=== PATIENT | female | born 1930 | race Caucasian/White ===

== ENCOUNTER → 2017-12-26 | Outpatient (CLI) | payer MEDICARE ==
[~2017-12-26] MED LIST: ASPIR 8181 MG PO; AZO CRANBERRY1 EAC1 PO; EXFORGE 10-3201 EACH PO; NAMENDA10 MG PO; XANAX1 MG PO
--- NOTE | 2017-12-26 13:42 | Diagnostic Imaging Report ---
PROCEDURE: X-RAY CHEST, TWO VIEWS COMPARISON: None. INDICATIONS: COUGH, PNEUMONIA FINDINGS: The lungs are well-inflated. No focal airspace consolidation, pleural effusion, or pneumothorax. Tortuosity and atherosclerotic calcification of the thoracic aorta. Normal heart size. No pulmonary edema. No acute osseous abnormalities. Surgical clips project over the upper abdomen on the lateral radiograph and likely reflect prior cholecystectomy. CONCLUSION: No acute cardiopulmonary abnormality. No consolidative pneumonia. Dictated by: Luis Alfredo Verma M.D. on 12/26/2017 at 13:51 Electronically approved by: Luis Alfredo Verma M.D. on 12/26/2017 at 13:51
--- NOTE | 2017-12-26 13:46 | Diagnostic Imaging Report ---
PROCEDURE:L-SPINE COMPLETE COMPARISON:None. INDICATIONS:LOWER BACK PAIN FOR A FEW DAYS FINDINGS: There are 5 [id number] lumbar-type vertebral bodies. The bones are diffusely osteopenic. There is an age-indeterminate mild anterior compression deformity of T12 with less than 20% loss of anterior height. No acute, displaced fracture or subluxation. No pars interarticularis defects are identified on the oblique radiographs. There is mild bilateral facet arthropathy at L5-S1. Intervertebral disc spaces are otherwise well maintained for a patient of this age. Surgical clips project over the right upper quadrant of the abdomen and the pelvis. Atherosclerotic vascular calcifications. Sequelae joints are maintained. Sacral foramina appear intact superiorly. Inferiorly, the sacrum is obscured by rectal gas and stool. CONCLUSION: Diffuse osteopenia with a mild age-indeterminate anterior compression deformity of T12. Point tenderness over this region of the spine would suggest relative acuity. Mild bilateral facet arthropathy at L5-S1. Dictated by: Luis Alfredo Verma M.D. on 12/26/2017 at 13:55 Electronically approved by: Luis Alfredo Verma M.D. on 12/26/2017 at 13:55
== END ==
LOC: RAD 12:09
DX: R05 Cough (principal); M54.5 Low back pain
CPT/HCPCS: 71046; 72110

== ENCOUNTER 2020-07-24 14:47 | Inpatient (IN) | payer MEDICARE, OTHER ==
[~2020-07-24] VITALS: Ht 157.5 cm; Wt 61.2 kg
--- NOTE | 2020-07-24 15:12 | Emergency Department Note ---
History of Present Illnes History of Present Illness Chief Complaint: General Medicine Complaints History of Present Illness This is a 89 year old female arrived to the ED with complaints of right shoulder pain after a fall. Chief Complaint Comment [facility]. PATIENT GOT OUT AND FELL, INJURING RIGHT SHOULDER. PATIENT RATES PAIN 10/10, ICE PACK ON RIGHT ARM UPON ARRIVAL. PATIENT APPEARS IN NO DISTRESS, RESP EVEN AND NONLABORED Historian: Patient Arrival Mode: Car Severity: mild Context: Reports trauma/injury Past Medical/Family History Physician Review I have reviewed the patient's past medical and family history. Any updates have been documented here. Past Medical History Recent Fever: No Clinical Suspicion of Infectio: No New/Unexplained Change in Ment: No Past Medical History: Hypertension, CAD, Other Mental Illness Other Medical History: ALZHEIMER'S OVERACTIVE BLADDER Social History Physically hurt or threatened: No Other Last Tetanus: UNK Physical Exam Related Data Allergies: Coded Allergies: Nitrofurantoin Macrocrystal (Verified Allergy, Unknown, 07/24/20) Penicillins (Verified Allergy, Unknown, 07/24/20) Sulfa (Sulfonamide Antibiotics) (Verified Allergy, Unknown, 07/24/20) nitrofurantoin (Verified Allergy, Unknown, 07/24/20) Triage Vital Signs Vital Signs Date Time Temp Pulse Resp B/P (MAP) Pulse Ox O2 Delivery O2 Flow Rate FiO2 07/24/20 14:47 97.6 52 18 145/110 96 Room Air Vital signs reviewed: Yes Physical Exam CONSTITUTIONAL Constitutional: Present well-developed HENT HENT: Present normocephalic, Present atraumatic, Present oropharynx clear/moist, Present nose normal HENT L/R: Present left ext ear normal, Present right ext ear normal EYES Eyes: Reports PERRL, Reports conjunctivae normal NECK Neck: Present ROM normal PULMONARY Pulmonary: Present effort normal, Present breath sounds normal CARDIOVASCULAR Cardiovascular: Present regular rhythm, Present heart sounds normal, Present capillary refill normal, Present normal rate GASTROINTESTINAL Abdominal: Present soft, Present nontender, Present bowel sounds normal GENITOURINARY Genitourinary: Present exam deferred SKIN Skin: Present warm, Present dry MUSCULOSKELETAL Musculoskeletal: Present ROM normal NEUROLOGICAL Neurological: Present alert, Present no gross motor or sensory deficits PSYCHOLOGICAL Psychological: Present mood/affect normal, Present judgement normal Results Laboratory Lab results reviewed: Yes Imaging Imaging results reviewed: Yes Impressions IMPRESSION: 1. Comminuted and impacted fracture of the proximal humerus, likely at the head/neck junction. 2. Comminuted fracture of the humeral shaft. 3. Cardiomegaly with low lung volumes with bronchovascular crowding. Signed by: Nereida Newman MD on 07/24/2020 4:12 PM Assessment & Plan Medical Decision Making MDM 89 yo F arrived to the ED after a mechanical fall, obvious deformity noted right shoulder. Patient admitted for operative repair/orthopedic consult. Assessment & Plan Final Impression: (1) Humeral head fracture (2) Humeral shaft fracture Depart Disposition: ADMITTED Last Vital Signs Date Time Temp Pulse Resp B/P (MAP) Pulse Ox O2 Delivery O2 Flow Rate FiO2 07/24/20 14:47 97.6 52 18 145/110 96 Room Air Home Meds Reported Medications Acetaminophen (ACETAMINOPHEN) 325 Mg Tablet, 325 MG PO Q6H PRN for PAIN, TAB 07/28/20 Tramadol Hcl (ULTRAM) 50 Mg Tablet, 37.5 MG PO Q6H PRN for PAIN, TAB 07/28/20 Lansoprazole (LANSOPRAZOLE) 30 Mg Capsule.dr 07/24/20 Sertraline Hcl (SERTRALINE HCL) 25 Mg Tablet 07/24/20 Atorvastatin Calcium (ATORVASTATIN CALCIUM) 10 Mg Tablet 07/24/20 Sucralfate (SUCRALFATE) 1 Gm Tablet, BID 07/24/20 Clopidogrel Bisulfate (CLOPIDOGREL) 75 Mg Tablet 07/24/20 Alprazolam (ALPRAZOLAM) 0.5 Mg Tablet, HS 07/24/20 Risperidone (RISPERIDONE) 0.25 Mg Tablet 07/24/20 [Zolpidem] No Conflict Check, HS 07/24/20 Metoprolol Tartrate (LOPRESSOR) 25 Mg Tab, BID 07/24/20 Losartan Potassium (LOSARTAN POTASSIUM) 50 Mg Tablet 07/24/20 Memantine HCl (Memantine HCl) 10 Mg Tablet, BID 07/24/20 HOWARD SALAMANCA DO Jul 24, 2020 15:12
[2020-07-24] MEDS ORDERED: HYDROCODONE/APAP 10MG-325MG TAB PO ONE (15:15)
[2020-07-24] MEDS ORDERED: ONDANSETRON HCL INJ 2MG/ML 2ML 2 MG/ML VIAL IV ONE (15:26)
[2020-07-24] MEDS ORDERED: MORPHINE SULFATE 5 MG/ML VIAL IV ONE (15:30)
[2020-07-24] MEDS ORDERED: MORPHINE SULFATE 2 MG/ML SYR 1ML IV ONE (15:30)
--- NOTE | 2020-07-24 15:30 | NUR ---
as per Dr. Andrews, patient will not have any labs done, cath lab radiological technologist ordered to discard blood
--- NOTE | 2020-07-24 16:00 | NUR ---
PT NOTED TO HAVE O2 SATS OF 89-92% ON RA. PER DAUGHTER PT HAS NEVER REQUIRED SUPPLEMENTAL O2. PT HAD JUST RECEIVED 2MG MORPHINE. PT INSTRUCTED TO TAKE DEEP BREATHS. PT PLACED ON 2L 02 VIA NC. AWARE. O2 SATS NOW 97%. PT INTERMITTENTLY DROWSY. WILL CONTINUE TO MONITOR.
--- NOTE | 2020-07-24 16:16 | Diagnostic Imaging Report ---
X-ray right shoulder 2 views. HISTORY: Shoulder Pain. COMPARISON: None available. FINDINGS: Bones/joints: There is comminuted and impacted fracture of the proximal humerus, likely at the head/neck junction. No evidence of dislocation identified. Additionally, there is comminuted fracture of the humeral shaft. Soft tissues: There is diffuse soft tissue swelling around fracture. Others: The imaged lungs demonstrate low lung volume with bronchovascular crowding and cardiomegaly. There is atherosclerotic calcification of the thoracic aortic arch. There is also bibasilar atelectasis. IMPRESSION: 1. Comminuted and impacted fracture of the proximal humerus, likely at the head/neck junction. 2. Comminuted fracture of the humeral shaft. 3. Cardiomegaly with low lung volumes with bronchovascular crowding. Signed by: Nereida Newman MD on 07/24/2020 4:12 PM
--- OUTSIDE RECORDS SUMMARY | 2020-07-24 16:16 | XMS REPORT | Continuity of Care Document ---
Author Author [facility] TONY Pagan [employer] Address Unknown Phone Unavailable Care Team Providers Care Neurological Physiotherapist Name Role Phone [employer] Unavailable Un available Problems Problem Status Onset Date Classification Date Reported Comments Source VOMITING Active 03/06/2019 [facility] NON-ST ELEVATION FL(NSTEMI),ACUTE HYPOKA Active 03/06/2019 [facility] Other forms of dyspnea 12/30/2018 07/14/2019 [facility] DX: R06.09 Active 12/22/2018 [facility] Noninfective gastroenteritis and colitis, unspecified 02/11/2018 05/14/2018 [facility] ACUTE DIARRHEA, GENERALIZED WEAKNESS Active 02/01/2018 [facility] DIAREHA Active 02/01/2018 [facility] Dementia (disorder) Resolved Problem [id number], systemic arterial (disorder) Resolved Problem 07/14/2019 [facility] Ulcer of intestine 05/14/2018 [facility] Anemia, unspecified 05/14/2018 [facility] Unspecified dementia without behavioral disturbance 05/14/2018 [facility] Hyperlipidemia, unspecified 05/14/2018 [facility] Anxiety disorder, unspecified 05/14/2018 [facility] Essential (primary) hypertension 05/14/2018 [facility] Weakness 05/14/2018 [facility] Hypokalemia 05/14/2018 [facility] Other hemorrhoids 05/14/2018 [facility] Elevated white blood cell count, unspecified 05/14/2018 [facility] Gastritis, unspecified, without bleeding 05/14/2018 [facility] Esophagitis, unspecified 05/14/2018 [facility] DIARRHEA, UNSPECIFIED Active [facility] WEAKNESS Active [facility] OTHER FORMS OF DYSPNEA Active [facility] NON-ST ELEVATION (NSTEMI) MYOCARDIAL INF Active [facility] HYPOKALEMIA Active [facility] HYPO-OSMOLALITY AND HYPONATREMIA Active [facility] Medications Medication Details Route Status Patient Instructions Ordering Provider Order Date Source clopidogrel 75 mg oral tablet 75 mg = 1 tab, PO, Daily, # 30 tab, 1 Refill(s), Pharmacy: [facility] [id number] Active 03/09/2019 [facility] losartan 25 mg oral tablet 25 mg = 1 tab, PO, Daily, # 30 tab, 0 Refill(s), Pharmacy: [facility] [id number] Active 03/09/2019 [facility] metoprolol tartrate 25 mg oral tablet 25 mg = 1 tab, PO, Q12H, # 60 tab, 0 Refill(s), Pharmacy: [facility] [id number] Active 03/09/2019 [facility] Plavix Notes: (Same As: Plavix) Inactive 03/09/2019 [facility] Plavix 300 mg, Route: PO, Drug form: TAB, ONCE, Dosing Weight 71.477, kg, Start date: 03/08/19 10:06:00 CDT, Stop date: 03/08/19 10:06:00 CDT Inactive 03/08/2019 [facility] Plavix Notes: ( Same as: Plavi x) Inactive 03/08/2019 [facility] potassium chloride 20 mEq oral tablet, extended releas e Notes: (Same as: K-Dur 20) "Do Not Crush" Give with food and full glass of water For patients unable to swallow tablet, dissolve in one half glass of water. Allow about 2 minutes for the tablets to disintegrate. Stir before giving to prepare slurry and administer. Please exclude Patients with feeding tube less than 14 [place] (Dobhoff, J-tube etc) and pediatric and patients. Inactive 03/07/2019 [facility] metoprolol tartrate Notes: (Sa me as: Lopressor) No Longer Active 03/07/2019 [facility] potassium chloride 20 mEq oral tablet, extended releas e Notes: (Same as: K-Dur 20) "Do Not Crush" Give with food and full glass of water For patients unable to swallow tablet, dissolve in one half glass of water. Allow about 2 minutes for the tablets to disintegrate. Stir before giving to prepare slurry and administer. Please exclude Patients with feeding tube less than 14 [place] (Dobhoff, J-tube etc) and pediatric and patients. Inactive 03/07/2019 [facility] Risperidone Notes: (Same as: R isperdal) No Longer Active 03/07/2019 [facility] Memantine Notes: (Same As: Nam enda) No Longer Active 03/07/2019 [facility] Protonix Notes: Tablet should not be chewed or crushed. (Same as: Protonix) No Longer Active 03/07/2019 [facility] Aspirin 81 MG Enteric Coated Tablet Notes: Do not crush or chew. (Same As: Ecotrin) No Longer Active 03/07/2019 [facility] Alprazolam 0.5 MG Oral Tablet [Xanax] Notes: With food or milk (Same as: Xanax) No Longer Active 03/07/2019 [facility] atorvastatin Notes: (Same As: Lipitor) No Longer Active 03/07/2019 [facility] NS 1000 mL 1,000 mL, Rate: 75 ml/hr, Infuse over: 13.3 hr, Route: IV, Dosing Weight 72.727 kg, Total Volume: 1,000, Start date: 03/06/19 18:59:00 CDT, Duration: 30 day, Stop date: 04/05/19 18:58:00 CDT, 1.82, m2 Inactive 03/06/2019 [facility] Seroquel Notes: (Same as: SERO quel) No Longer Active 03/06/2019 [facility] Hydralazine Notes: (Same as: A presoline) Push over 5 minutes No Longer Active 03/06/2019 [facility] Acetaminophen 325 MG / Hydrocodone Amanda trate 5 MG Oral Tablet [Yachats 5/325] Notes: (Same as: Y[place]ats 325/5) Do not ex ceed 4gm/day of acetaminophen. No Longer Activ e 03/06/2019 [facility] Nicotine Notes: (Same as: Jayesh mcdonough) "Remove old patch before application of new patch" WASTE: F/P - P Waste Black; E - P Waste Black No Longer Active 03/06/2019 [facility] Simethicone Notes: (Same as: Lisa ylicon) No Longer Active 03/06/2019 [facility] Maalox Advanced Regular Strength SUSP Notes: (aluminum hydroxide-magnesium hyd-simethicone [phone]/5ml 30 ml ud YOMI) No Longer Active 03/06/2019 [facility] Morphine Notes: (Same as:MORPh ine Sulfate) No Longer Active 03/06/2019 [facility] Robitussin-AC oral syrup Notes : (Same As: Robitussin AC) No Longer Active 03/06/2019 [facility] James Stratton Notes: (Same A s: Armondon Chayito) "Do Not Crush" No Longer Active 03/06/2019 [facility] Mucinex Notes: (Same as: Guaif enesin LA, Humibid LA, Mucinex) "Do Not Crush" Take medication with plenty of water. No Longer Active 03/06/2019 [facility] Dextrose 50% Syringe 25 gm, 50 mL, Route: IVP, Drug Form: INJ, Dosing Weight 72.727, kg, PRN, PRN Blood Glucose Results, Start date: 03/06/19 18:21:00 CDT, Duration: 30 day, Stop date: 04/05/19 18:20:00 CDT No Longer Active 03/06/2019 [facility] Docusate Notes: (Same as: Cola ce) (Do Not Crush) No Longer Active 03/06/2019 [facility] Glucagon 1 mg, Route: IM, Drug form: PDR/INJ, PRN, Dosing Weight 72.727, kg, PRN Blood Glucose Results, Start date: 03/06/19 18:21:00 CDT, Duration: 30 day, Stop date: 04/05/19 18:20:00 CDT No Longer Active 03/06/2019 [facility] Bisacodyl Notes: (Same As: Dul colax, Bisco-Lax) No Longer Active 03/06/2019 [facility] POLYETHYLENE GLYCOL 3350 Notes : Dissolve in 8 oz of water or juice. (Same as: Miralax) No Longer Active 03/06/2019 [facility] Ondansetron Notes: (Same as: Douglas lewis) MEDICATION WASTE Product Size: 4 mg Product Wasted: ___ mg No Longer Active 03/06/2019 [facility] Acetaminophen Notes: Do not ex ceed 4 gm/day. (Same as: Tylenol) No Longer Active 03/06/2019 [facility] Trazodone Notes: (Same As: Lj yrel) No Longer Active 03/06/2019 [facility] Melatonin Notes: (Same as: Steffanie atonin) No Longer Active 03/06/2019 [facility] Diphenhydramine 25 mg, 1 tab, Route: PO, Drug form: TAB, Q6H, Dosing Weight 72.727, kg, PRN as needed for allergy symptoms, Start date: 03/06/19 18:21:00 CDT, Duration: 30 day, Stop date: 04/05/19 18:20:00 CDT No Longer Active 03/06/2019 [facility] Aspirin 81 MG Chewable Tablet 81 mg, Route: PO, Drug form: CHEWTAB, ONCE, Dosing Weight 72.727, kg, Priority: Routine, Start date: 03/06/19 17:17:00 CDT, Stop date: 03/06/19 17:17:00 CDT Inactive 03/06/2019 [facility] normal saline 0.9% IV 1,000 mL 1,000 mL, Rate: 50 ml/hr, Infuse over: 20 hr, Route: IV, Dosing Weight 71.477 kg, Total Volume: 1,000, Priority: STAT, Start date: 03/06/19 17:17:00 CDT, Duration: 5 day, Stop date: 03/11/19 17:17:00 CDT, 1.8, m2 No Longer Active 03/06/2019 [facility] Hydrochlorothiazide 25 MG / valsartan 16 0 MG Oral Tablet 1 tab, PO, Daily, 0 Refill(s) Active 03/06/2019 [facility] lansoprazole 30 mg oral delayed release capsule 30 mg = 1 cap, PO, BID, 0 Refill(s) Active 03/06/2019 [facility] Potassium Chloride Notes: Infu se at a rate of 10 mEq/hr. (Same as: KCL) Inactive 03/06/2019 [facility] Heparin - one time bolus for ACS 3,600 unit, 3.6 mL, Route: IVP, Drug form: INJ, ONCE, Dosing Weight 72.727, kg, Priority: STAT, Start date: 03/06/19 16:23:00 CDT, Stop date: 03/06/19 16:23:00 CDT Inactive 03/06/2019 [facility] Heparin 60 unit/kg Bolus (Heparin Dosing Weight) Route: IVP, PRN, 3,600 unit, 3.6 mL, Drug form: INJ, PRN, Heparin Protocol, Start date: 03/06/19 16:23:00 CDT Stop date: 04/05/19 16:22:00 CDT, 30 day No Longer Active 03/06/2019 [facility] Heparin 30 unit/kg Bolus (Heparin Dosing Weight) Route: IVP, PRN, 1,800 unit, 1.8 mL, Drug form: INJ, PRN, Heparin Protocol, Start date: 03/06/19 16:23:00 CDT Stop date: 04/05/19 16:22:00 CDT, 30 day No Longer Active 03/06/2019 [facility] heparin additive 25,000 unit [12 unit/kg /hr] + Premix Diluent Dextrose 5% 500 mL 500 mL, Rate: 14.53 ml/hr, Infuse over: 34.4 hr, Route: IV, Dosing Weight 60.53 kg, Total Volume: 500 mL, Start date: 03/06/19 16:23:00 CDT, Duration: 30 day, Stop date: 04/05/19 16:22:00 CDT, 1.66, m2 No Longer Active 03/06/2019 [facility] Aspirin Notes: Take with food. Inactive 03/06/2019 [facility] Saline Flush 0.9% Notes: (Same as: BD Posiflush) No Longer Active 03/06/2019 [facility] potassium chloride 10 mEq oral capsule, extended release 10 mEq = 1 cap, PO, BID, # 14 cap, 0 Refill(s) Active 02/05/2018 [facility] Docusate Sodium 100 MG Oral Capsule [Colace] 100 mg = 1 cap, PO, BID, PRN as needed for constipation, # 28 cap, 0 Refill(s) Active 02/05/2018 [facility] Lactulose 667 MG/ML Oral Solution 10 gm = 15 mL, PO, BID, PRN as needed for constipation, X 7 day, # 300 mL, 0 Refill(s) No Longer Active 02/05/2018 [facility] Potassium Chloride 1.33 MEQ/ML Oral Solution Notes: (Same as: Potassium Chloride) Inactive 02/05/2018 [facility] Potassium Chloride Notes: MUST be Diluted before use (Same as: KCl) MEDICATION WASTE Product Size: 40 mEq Product Wasted: ___ mEq Inactive 02/04/2018 [facility] Potassium Chloride Notes: (Stef e as: K-Dur 20) "Do Not Crush" With food and full glass of water Inactive 02/04/2018 [facility] pantoprazole Notes: Tablet baltazar uld not be chewed or crushed. (Same as: Protonix) N o Longer Active 02/04/2018 [facility] Sodium Chloride 0.9% IV 1,000 mL 1,000 mL, Rate: 25 ml/hr, Infuse over: 40 hr, Route: IV, Dosing Weight 60 kg, Total Volume: 1,000, Start date: 02/03/18 13:07:00 CDT, Duration: 1 day, Stop date: 02/04/18 13:06:00 CDT, 1.62, m2 Inactive 02/03/2018 [facility] sodium phosphate 15 mmol, 5 mL , Route: IVPB, PRN, Dosing Weight 60, kg, PRN Abnormal Lab Result, For NON-ICU Patients Only., Start date: 02/03/18 11:56:00 CDT, Duration: 30 day, Stop date: 03/05/18 11:55:00 CDT No Longer Active 02/03/2018 [facility] potassium phosphate Notes: (Sa me as: K Phosphate.) 1 mMol phoshate has 1.47 mEq potassium Infuse over 4 hours No Longer Active 02/03/2018 [facility] Magnesium Oxide Notes: (Same a s: Mag-Ox 400) Magnesium oxide [id number] elemental magnesium Dose=____mg magnesium oxide (___mg elemental magnesium) No Longer Active 02/03/2018 [facility] Magnesium Sulfate Notes: WASTE : F/P - Sink; E - Municipal Trash Bin No Longer Active 02/03/2018 [facility] Calcium Gluconate Notes: WASTE : F/P - Sink; E - Municipal Trash Bin No Longer Active 02/03/2018 [facility] Potassium Chloride Notes: MUST be Diluted before use (Same as: KCl) MEDICATION WASTE Product Size: 40 mEq Product Wasted: ___ mEq No Longer Active 02/03/2018 [facility] potassium phosphate-sodium phosphate 250 mg-280 mg-160 mg oral powder for reconstitution Notes: (Same as: Phos-NaK) Each 1.5 gm pkt has 250mg phosphorous. Mix w/2.5oz water and stir. No Longer Active 02/03/2018 [facility] Potassium Chloride Notes: MUST be Diluted before use (Same as: KCl) MEDICATION WASTE Product Size: 40 mEq Product Wasted: ___ mEq Inactive 02/03/2018 [facility] Risperidone Notes: (Same as: R isperdal) No Longer Active 02/03/2018 [facility] valsartan Notes: Same as Diovan No Longer Active 02/03/2018 [facility] amLODIPine Notes: (Same as: No rvasc) No Longer Active 02/03/2018 [facility] Amlodipine 5 MG / valsartan 160 MG Oral Tablet [Exforge 5/160] 1 tab, Route: PO, Drug Form: TAB, Dosing Weight 60, kg, Daily, Start date: 02/03/18 9:00:00 CDT, Duration: 30 day, Stop date: 03/04/18 9:00:00 CDT No Longer Active 02/03/2018 [facility] Potassium Chloride Notes: (Stef e as: K-Dur 20) "Do Not Crush" With food and full glass of water Inactive 02/03/2018 [facility] magnesium citrate 58.2 MG/ML Oral Solution Notes: (Same as: Citrate of Magnesia) Concentration: 1.745 gm / 30 mL Inactive 02/03/2018 [facility] Sertraline Notes: (Same as: Z oloft) No Longer Active 02/03/2018 [facility] Memantine Notes: (Same As: Nam enda) No Longer Active 02/03/2018 [facility] atorvastatin Notes: (Same As: Lipitor) No Longer Active 02/03/2018 [facility] Alprazolam 0.5 MG Oral Tablet Notes: With food or milk (Same as: Xanax) No Longer Active 02/02/2018 [facility] Ibuprofen Notes: (Same as: Adv il) Give with food. No Longer Active 02/02/2018 [facility] Golytely Notes: (polyethylene glycol electrolyte solution 4 Liter bottle) (Same as: Golytely, Colyte) Inactive 02/02/2018 [facility] Potassium Chloride Notes: MUST be Diluted before use (Same as: KCl) MEDICATION WASTE Product Size: 40 mEq Product Wasted: ___ mEq Inactive 02/02/2018 [facility] potassium chloride 20 mEq oral tablet, extended releas e Notes: (Same as: K-Dur 20) "Do Not Crush" With food and full glass of water Inactive 02/02/2018 [facility] hydrocortisone acetate 25 MG/ML / Pramox ine hydrochloride 10 MG/ML Topical Lotion [Analpram HC] Notes: (Same as: ProctoCream-HC, Analpram-HC) No Longer Active 02/02/2018 [facility] Docusate Sodium 100 MG Oral Capsule [Colace] Notes: (Same as: Colace) (Do Not Crush) No Longer Active 02/02/2018 [facility] Lactulose 667 MG/ML Oral Solution Notes: (Same as:Chronulac) No Longer Active 02/02/2018 [facility] Flagyl Notes: (Same as: Flagyl ) Avoid alcohol. No Longer Active 02/02/2018 [facility] Seroquel Notes: (Same as: SERO quel) No Longer Active 02/02/2018 [facility] Dulcolax Laxative Notes: (Same As: Dulcolax, Bisco-Lax) Inactive 02/02/2018 [facility] magnesium citrate 58.2 MG/ML Oral Solution Notes: (Same as: Citrate of Magnesia) Concentration: 1.745 gm / 30 mL Inactive 02/02/2018 [facility] memantine 10 mg oral tablet 10 mg = 1 tab, PO, Q12H, 0 Refill(s) Active 02/02/2018 [facility] Hemorrhoidal 0.25% rectal suppository Daily, PRN Hemorrhoids, 0 Refill(s) Activ e 02/02/2018 [facility] hydrocortisone acetate 25 MG/ML / Pramox ine hydrochloride 10 MG/ML Topical Lotion [Analpram HC] 1 appl, UT, TID, PRN Pain Score 1- 5, # 1 kit, 0 Refill(s) Active 02/02/2018 [facility] Alprazolam 0.5 MG Oral Tablet 0.5 mg = 1 tab, PO, Q5PM, 0 Refill(s) Active 02/02/2018 [facility] atorvastatin 10 mg oral tablet 10 mg = 1 tab, PO, Bedtime, # 30 tab, 0 Refill(s) Active 02/02/2018 [facility] lansoprazole 30 mg oral delayed release capsule 30 mg = 1 cap, PO, BID, 0 Refill(s) No Longer Active 02/02/2018 [facility] lansoprazole 30 mg, PO, Daily, # 15 cap, 0 Refill(s) Active 02/02/2018 [facility] Acetaminophen 500 mg, PO, Q6H, PRN Pain Score 1-5, 0 Refill(s) Active 02/02/2018 [facility] zolpidem 10 mg oral tablet 10 mg = 1 tab, PO, Bedtime, PRN for sleep, # 14 tab, 0 Refill(s) Active 02/02/2018 [facility] sertraline 25 mg oral tablet 2 5 mg = 1 tab, PO, Bedtime, 0 Refill(s) Active 02/02/2018 [facility] risperiDONE 0.25 mg oral tablet 0.25 mg = 1 tab, PO, Daily, 0 Refill(s) Active 02/02/2018 [facility] Amlodipine 5 MG / valsartan 160 MG Oral Tablet [Exforge 5/160] 1 tab, PO, Daily, 0 Refill(s) Active 02/02/2018 [facility] Miralax 17 gm, PO, BID, 0 Refi ll(s) Active 02/02/2018 [facility] Ibuprofen 200 mg, PO, Daily, P RN Pain Score 6-10, 0 Refill(s) No Longer Active 02/02/2018 [facility] Cranberry preparation 250 MG Chewable Ta blet [Azo-Cranberry] 1 tab, PO, Daily, 0 Refill(s) Active 02/02/2018 [facility] Sodium Chloride 0.9% IV 1,000 mL 1,000 mL, Rate: 60 ml/hr, Infuse over: 16.7 hr, Route: IV, Dosing Weight 63.636 kg, Total Volume: 1,000, Start date: 02/01/18 17:00:00 CDT, Duration: 30 day, Stop date: 03/03/18 16:59:00 CDT, 1.68, m2 No Longer Active 02/01/2018 [facility] Saline Flush 0.9% Notes: (Same as: BD Posiflush) No Longer Active 02/01/2018 [facility] Ondansetron Notes: (Same as: Douglas lewis) MEDICATION WASTE Product Size: 4 mg Product Wasted: ___ mg No Longer Active 02/01/2018 [facility] Flagyl Notes: (Same as: [place] ) Avoid alcohol. Inactive 02/01/2018 [facility] Ciprofloxacin Notes: Do not re frigerate Inactive 02/01/2018 [facility] Morphine 4 mg, Route: IVP, ONC E, Dosing Weight 63.636, kg, Priority: STAT, Start date: 02/01/18 11:53:00 CDT, Stop date: 02/01/18 11:53:00 CDT Inactive 02/01/2018 [facility] Ondansetron 4 mg, Route: IVP, ONCE, Dosing Weight 63.636, kg, Priority: STAT, Start date: 02/01/18 11:53:00 CDT, Stop date: 02/01/18 11:53:00 CDT Inactive 02/01/2018 [facility] Saline Flush 0.9% Notes: (Same as: BD Posiflush) No Longer Active 02/01/2018 [facility] Sodium Chloride 0.9% (Bolus) IV 1,000 mL, Infuse Over: 1 hr, Route: IV, ONCE, Priority: STAT, Dosing Weight 63.636 kg, Start date: 02/01/18 11:53:00 CDT, Stop date: 02/01/18 11:53:00 CDT Inactive 02/01/2018 [facility] Allergies, Adverse Reactions, Alerts Substance Category Reaction Severity Reaction type Status Date Reported Comments Source zitromax Assertion Drug allergy Active [facility] macrobyt Assertion Drug allergy Active [facility] penicillins Assertion Drug allergy Active [facility] sulfa drugs Assertion Drug allergy Active [facility] ibuprofen Assertion Drug allergy Active [facility] iodine containing compounds As sertion Drug aller gy Active [facility] Immunizations No Data Provided for This Section Results Order Name Results Value Reference Range Date Interpretation Comments Source CHEM PANEL eGFR 64 03/08/2019 Result Comment: The eGFR is calculated using the CKD-EPI formula. In most young, healthy individuals the eGFR will be >90 mL/min/1.73m2. The eGFR declines with age. An eGFR of 60-89 may be normal in some populations, particularly the elderly, for whom the CKD-EPI formula has not been extensively validated. Use of the eGFR is not recommended in the following populations:

Individuals with unstable creatinine concentrations, including patients and those with serious co-morbid conditions.

Patients with extremes in muscle mass or diet.

The data above are obtained from the National Kidney Disease Education Program (NKDEP) which additionally recommends that when the eGFR is used in patients with extremes of body mass index for purposes of drug dosing, the eGFR should be multiplied by the estimated BMI. [facility] CHEM PANEL Chloride Lvl 108 95 - 109 03/08/2019 [facility] CHEM PANEL Sodium Lvl 137 135 - 145 03/08/2019 [facility] CHEM PANEL Potassium Lvl 4.3 3.5 - 5.1 03/08/2019 [facility] CHEM PANEL CO2 22 24 - 32 03/08/2019 [facility] CHEM PANEL AGAP 11.3 10.0 - 20.0 03/08/2019 [facility] CHEM PANEL Calcium Lvl 9.1 8.5 - 10.5 03/08/2019 [facility] CHEM PANEL Creatinine Lvl 0.83 0.50 - 1.40 03/08/2019 [facility] CHEM PANEL BUN 9 7 - 22 03/08/2019 [facility] CHEM PANEL Glucose Lvl 84 70 - 99 03/08/2019 [facility] HEMATOLOGY WBC 6.5 3.7 - 10.4 03/08/2019 [facility] HEMATOLOGY Platelet 219 133 - 450 03/08/2019 [facility] HEMATOLOGY RDW 13.5 11.5 - 14.5 03/08/2019 [facility] HEMATOLOGY MCHC 33.0 32.0 - 36.0 03/08/2019 [facility] HEMATOLOGY RBC 4.27 4.20 - 5.40 03/08/2019 [facility] Hgb 12.6 12.0 - 16.0 03/08/2019 [facility] MPV 8.3 7.4 - 10.4 03/08/2019 [facility] Hct 38.1 36.0 - 48.0 03/08/2019 [facility] MCH 29.5 27.0 - 31.0 03/08/2019 [facility] HEMATOLOGY MCV 89.4 80.0 - 98.0 03/08/2019 [facility] CHEM PANEL Magnesium Lvl 1.9 1.8 - 2.4 03/07/2019 [facility] CHEM PANEL Glucose Lvl 92 70 - 99 03/07/2019 [facility] CHEM PANEL Potassium Lvl 3.1 3.5 - 5.1 03/07/2019 [facility] CHEM PANEL Creatinine Lvl 0.78 0.50 - 1.40 03/07/2019 [facility] CHEM PANEL Chloride Lvl 99 95 - 109 03/07/2019 [facility] CHEM PANEL Sodium Lvl 133 135 - 145 03/07/2019 [facility] CHEM PANEL BUN 6 7 - 22 03/07/2019 [facility] CHEM PANEL eGFR 69 03/07/2019 Result Comment: The eGFR is calculated using the CKD-EPI formula. In most young, healthy individuals the eGFR will be >90 mL/min/1.73m2. The eGFR declines with age. An eGFR of 60-89 may be normal in some populations, particularly the elderly, for whom the CKD-EPI formula has not been extensively validated. Use of the eGFR is not recommended in the following populations:

Individuals with unstable creatinine concentrations, including patients and those with serious co-morbid conditions.

Patients with extremes in muscle mass or diet.

The data above are obtained from the National Kidney Disease Education Program (NKDEP) which additionally recommends that when the eGFR is used in patients with extremes of body mass index for purposes of drug dosing, the eGFR should be multiplied by the estimated BMI. [facility] CHEM PANEL CO2 22 24 - 32 03/07/2019 [facility] CHEM PANEL AGAP 15.1 10.0 - 20.0 03/07/2019 [facility] CHEM PANEL Calcium Lvl 8.9 8.5 - 10.5 03/07/2019 [facility] HEMATOLOGY PTT 69.8 22.9 - 35.8 03/07/2019 [facility] HEMATOLOGY MPV 8.8 7.4 - 10.4 03/07/2019 [facility] HEMATOLOGY WBC 8.1 3.7 - 10.4 03/07/2019 [facility] HEMATOLOGY MCHC 33.1 32.0 - 36.0 03/07/2019 [facility] HEMATOLOGY RBC 4.70 4.20 - 5.40 03/07/2019 [facility] HEMATOLOGY Hgb 14.0 12.0 - 16.0 03/07/2019 [facility] HEMATOLOGY Hct 42.1 36.0 - 48.0 03/07/2019 [facility] MCH 29.7 27.0 - 31.0 03/07/2019 [facility] HEMATOLOGY MCV 89.5 80.0 - 98.0 03/07/2019 [facility] HEMATOLOGY RDW 13.3 11.5 - 14.5 03/07/2019 [facility] Platelet 222 133 - 450 03/07/2019 [facility] LIPIDS CHD Risk 3.03 3.90 - 5.80 03/07/2019 [facility] LIPIDS Chol 118 <=199 mg/dL 03/07/2019 [facility] LIPIDS VLDL 30 03/07/2019 [facility] LIPIDS HDL 39 >=61 mg/dL 03/07/2019 [facility] LIPIDS LDL (Calculated) 49 <=99 mg/dL 03/07/2019 [facility] LIPIDS Trig 151 <=149 mg/dL 03/07/2019 [facility] SPECIAL CHEMISTRY Hgb A1C 6.5 <=5.6 % 03/07/2019 [facility] CARDIAC ENZYMES Troponin-I 0.85 0.00 - 0.40 03/07/2019 Result Comment: Critical Result(s) de jesus d to FLETCHER BRAGG at 03/07/2019 01:27 by APPLE. Read back OK. [facility] HEMATOLOGY PTT 63.8 22.9 - 35.8 03/07/2019 [facility] CARDIAC ENZYMES Troponin-I 1.10 0.00 - 0.40 03/07/2019 Result Comment: Critical Result(s) de jesus d to bowen hernandez at 03/06/2019 20:29 by neeraj. Read back OK. [facility] HEMATOLOGY RBC 4.44 4.20 - 5.40 03/06/2019 [facility] HEMATOLOGY WBC 10.7 3.7 - 10.4 03/06/2019 [facility] HEMATOLOGY Platelet 245 133 - 450 03/06/2019 [facility] MPV 8.3 7.4 - 10.4 03/06/2019 [facility] MCH 29.7 27.0 - 31.0 03/06/2019 [facility] MCHC 34.0 32.0 - 36.0 03/06/2019 [facility] HEMATOLOGY MCV 87.5 80.0 - 98.0 03/06/2019 [facility] HEMATOLOGY RDW 13.4 11.5 - 14.5 03/06/2019 [facility] HEMATOLOGY Hgb 13.2 12.0 - 16.0 03/06/2019 [facility] HEMATOLOGY Hct 38.9 36.0 - 48.0 03/06/2019 [facility] HEMATOLOGY PTT 33.8 22.9 - 35.8 03/06/2019 [facility] HEMATOLOGY INR 0.96 0.85 - 1.17 03/06/2019 [facility] HEMATOLOGY PT 12.6 12.0 - 14.7 03/06/2019 [facility] HEMATOLOGY Basophils # 0.1 0.0 - 0.2 03/06/2019 [facility] HEMATOLOGY Basophils 0.5 0.0 - 1.0 03/06/2019 [facility] HEMATOLOGY Neutrophils # 7.9 1.5 - 8.1 03/06/2019 [facility] HEMATOLOGY Lymphocytes # 2.1 1.0 - 5.5 03/06/2019 [facility] HEMATOLOGY Monocytes # 0.6 0.0 - 0.8 03/06/2019 [facility] HEMATOLOGY Eosinophils # 0.1 0.0 - 0.5 03/06/2019 [facility] HEMATOLOGY Lymphocytes 19.6 20.0 - 40.0 03/06/2019 [facility] HEMATOLOGY Monocytes 5.4 2.0 - 12.0 03/06/2019 [facility] HEMATOLOGY Eosinophils 0.8 0.0 - 4.0 03/06/2019 [facility] HEMATOLOGY Segs 73.7 45.0 - 75.0 03/06/2019 [facility] CARDIAC ENZYMES BNP 48 <=100 pg/mL 03/06/2019 [facility] URINE AND STOOL UA Bacteria None Seen (03/06/19 3:02 PM) None Seen 03/06/2019 [facility] URINE AND STOOL UA WBC 1 0 - 5 03/06/2019 [facility] URINE AND STOOL UA RBC <1 0 - 2 03/06/2019 [facility] URINE AND STOOL UA Leuk Est Negative (03/06/19 3:02 PM) Negative 03/06/2019 [facility] URINE AND STOOL UA Urobilinogen <=1.0 mg/dL 0.1 - 1.0 03/06/2019 [facility] URINE AND STOOL UA Nitrite Negative (03/06/19 3:02 PM) Negative 03/06/2019 [facility] URINE AND STOOL UA Sq Epi Occasional /LPF Few /LPF 03/06/2019 [facility] URINE AND STOOL UA Blood Negative (03/06/19 3:02 PM) Negative 03/06/2019 [facility] URINE AND STOOL UA Ketones Negative *NA* (03/06/19 3:02 PM) Negative 03/06/2019 [facility] URINE AND STOOL UA Bili Negative *NA* (03/06/19 3:02 PM) Negative 03/06/2019 [facility] URINE AND STOOL UA Glucose Negative *NA* (03/06/19 3:02 PM) Negative 03/06/2019 [facility] URINE AND STOOL UA Spec Grav 1.006 <=1.030 03/06/2019 [facility] URINE AND STOOL UA pH 7.0 5.0 - 8.0 03/06/2019 [facility] URINE AND STOOL UA Protein Negative (03/06/19 3:02 PM) Negative 03/06/2019 [facility] URINE AND STOOL UA Turbidity Clear (03/06/19 3:02 PM) Clear 03/06/2019 [facility] URINE AND STOOL UA Color Ltyellow 03/06/2019 [facility] CARDIAC ENZYMES Troponin-I 1.00 0.00 - 0.40 03/06/2019 Result Comment: Critical Result(s) neal WILLIS at 03/06/2019 15:42 by PJ. Read back OK. [facility] CHEM PANEL Bili Total 0.7 0.2 - 1.3 03/06/2019 [facility] CHEM PANEL Sodium Lvl 125 135 - 145 03/06/2019 [facility] CHEM PANEL Creatinine Lvl 0.87 0.50 - 1.40 03/06/2019 [facility] CHEM PANEL Potassium Lvl 2.7 3.5 - 5.1 03/06/2019 Result Comment: Critical Result(s) neal willingham to Rod LANDJR at 03/06/2019 15:42 by NEERAJ. Read back OK. [facility] CHEM PANEL Calcium Lvl 9.7 8.5 - 10.5 03/06/2019 [facility] CHEM PANEL AGAP 12.7 10.0 - 20.0 03/06/2019 [facility] CHEM PANEL Chloride Lvl 89 95 - 109 03/06/2019 [facility] CHEM PANEL CO2 26 24 - 32 03/06/2019 [facility] CHEM PANEL Total Protein 8.2 6.4 - 8.4 03/06/2019 [facility] CHEM PANEL Globulin 3.9 2.7 - 4.2 03/06/2019 [facility] CHEM PANEL Albumin Lvl 4.3 3.5 - 5.0 03/06/2019 [facility] CHEM PANEL eGFR 61 03/06/2019 Result Comment: The eGFR is calculated using the CKD-EPI formula. In most young, healthy individuals the eGFR will be >90 mL/min/1.73m2. The eGFR declines with age. An eGFR of 60-89 may be normal in some populations, particularly the elderly, for whom the CKD-EPI formula has not been extensively validated. Use of the eGFR is not recommended in the following populations:

Individuals with unstable creatinine concentrations, including patients and those with serious co-morbid conditions.

Patients with extremes in muscle mass or diet.

The data above are obtained from the National Kidney Disease Education Program (NKDEP) which additionally recommends that when the eGFR is used in patients with extremes of body mass index for purposes of drug dosing, the eGFR should be multiplied by the estimated BMI. [facility] CHEM PANEL A/G Ratio 1.1 0.7 - 1.6 03/06/2019 [facility] CHEM PANEL Alk Phos 104 39 - 136 03/06/2019 [facility] CHEM PANEL AST 47 0 - 37 03/06/2019 [facility] CHEM PANEL ALT 55 0 - 65 03/06/2019 [facility] CHEM PANEL B/C Ratio 8 6 - 25 03/06/2019 [facility] CHEM PANEL Glucose Lvl 103 70 - 99 03/06/2019 [facility] CHEM PANEL BUN 7 7 - 22 03/06/2019 [facility] HEMATOLOGY Segs 73.9 45.0 - 75.0 03/06/2019 [facility] HEMATOLOGY Monocytes 4.4 2.0 - 12.0 03/06/2019 [facility] HEMATOLOGY Lymphocytes 20.2 20.0 - 40.0 03/06/2019 [facility] HEMATOLOGY Basophils 0.5 0.0 - 1.0 03/06/2019 [facility] HEMATOLOGY Monocytes # 0.5 0.0 - 0.8 03/06/2019 [facility] HEMATOLOGY Lymphocytes # 2.3 1.0 - 5.5 03/06/2019 [facility] HEMATOLOGY Eosinophils # 0.1 0.0 - 0.5 03/06/2019 [facility] HEMATOLOGY Neutrophils # 8.4 1.5 - 8.1 03/06/2019 [facility] HEMATOLOGY Eosinophils 1.0 0.0 - 4.0 03/06/2019 [facility] HEMATOLOGY Basophils # 0.1 0.0 - 0.2 03/06/2019 [facility] ELECTROLYTES AGAP 12.0 10.0 - 20.0 02/05/2018 [facility] ELECTROLYTES eGFR 82 02/05/2018 Result Comment: The eGFR is calculated using the CKD-EPI formula. In most young, healthy individuals the eGFR will be >90 mL/min/1.73m2. The eGFR declines with age. An eGFR of 60-89 may be normal in some populations, particularly the elderly, for whom the CKD-EPI formula has not been extensively validated. Use of the eGFR is not recommended in the following populations:

Individuals with unstable creatinine concentrations, including patients and those with serious co-morbid conditions.

Patients with extremes in muscle mass or diet.

The data above are obtained from the National Kidney Disease Education Program (NKDEP) which additionally recommends that when the eGFR is used in patients with extremes of body mass index for purposes of drug dosing, the eGFR should be multiplied by the estimated BMI. [facility] ELECTROLYTES Calcium Lvl 8.9 8.5 - 10.5 02/05/2018 [facility] ELECTROLYTES BUN 7 7 - 22 02/05/2018 [facility] ELECTROLYTES Glucose Lvl 92 70 - 99 02/05/2018 [facility] ELECTROLYTES CO2 23 24 - 32 02/05/2018 [facility] ELECTROLYTES Creatinine Lvl 0.6 2 0.50 - 1.40 02/05/2018 [facility] ELECTROLYTES Chloride Lvl 111 95 - 109 02/05/2018 [facility] ELECTROLYTES Potassium Lvl 4.0 3.5 - 5.1 02/05/2018 [facility] ELECTROLYTES Sodium Lvl 142 135 - 145 02/05/2018 [facility] ELECTROLYTES Potassium Lvl 4.0 3.5 - 5.1 02/05/2018 [facility] HEMATOLOGY Hgb 11.3 12.0 - 16.0 02/05/2018 [facility] HEMATOLOGY WBC 7.5 3.7 - 10.4 02/05/2018 [facility] HEMATOLOGY RBC 3.80 4.20 - 5.40 02/05/2018 [facility] HEMATOLOGY Hct 33.9 36.0 - 48.0 02/05/2018 [facility] HEMATOLOGY MPV 9.3 7.4 - 10.4 02/05/2018 [facility] HEMATOLOGY Platelet 247 133 - 450 02/05/2018 [facility] HEMATOLOGY MCHC 33.4 32.0 - 36.0 02/05/2018 [facility] HEMATOLOGY MCH 29.8 27.0 - 31.0 02/05/2018 [facility] HEMATOLOGY MCV 89.2 80.0 - 98.0 02/05/2018 [facility] HEMATOLOGY RDW 14.3 11.5 - 14.5 02/05/2018 [facility] HEMATOLOGY Basophils 0.5 0.0 - 1.0 02/05/2018 [facility] HEMATOLOGY Segs-Bands # 4.8 1.5 - 8.1 02/05/2018 [facility] HEMATOLOGY Monocytes 7.8 2.0 - 12.0 02/05/2018 [facility] HEMATOLOGY Eosinophils 2.4 0.0 - 4.0 02/05/2018 [facility] HEMATOLOGY Lymphocytes 25.5 20.0 - 40.0 02/05/2018 [facility] HEMATOLOGY Segs 63.8 45.0 - 75.0 02/05/2018 [facility] HEMATOLOGY Eosinophils # 0.2 0.0 - 0.5 02/05/2018 [facility] HEMATOLOGY Monocytes # 0.6 0.0 - 0.8 02/05/2018 [facility] HEMATOLOGY Lymphocytes # 1.9 1.0 - 5.5 02/05/2018 [facility] ELECTROLYTES Potassium Lvl 3.4 3.5 - 5.1 02/04/2018 [facility] CHEM PANEL eGFR 83 02/04/2018 Result Comment: The eGFR is calculated using the CKD-EPI formula. In most young, healthy individuals the eGFR will be >90 mL/min/1.73m2. The eGFR declines with age. An eGFR of 60-89 may be normal in some populations, particularly the elderly, for whom the CKD-EPI formula has not been extensively validated. Use of the eGFR is not recommended in the following populations:

Individuals with unstable creatinine concentrations, including patients and those with serious co-morbid conditions.

Patients with extremes in muscle mass or diet.

The data above are obtained from the National Kidney Disease Education Program (NKDEP) which additionally recommends that when the eGFR is used in patients with extremes of body mass index for purposes of drug dosing, the eGFR should be multiplied by the estimated BMI. [facility] CHEM PANEL Calcium Lvl 7.9 8.5 - 10.5 02/04/2018 [facility] CHEM PANEL CO2 26 24 - 32 02/04/2018 [facility] CHEM PANEL Chloride Lvl 106 95 - 109 02/04/2018 [facility] CHEM PANEL AGAP 12.8 10.0 - 20.0 02/04/2018 [facility] CHEM PANEL Creatinine Lvl 0.61 0.50 - 1.40 02/04/2018 [facility] CHEM PANEL BUN 4 7 - 22 02/04/2018 [facility] CHEM PANEL Glucose Lvl 117 70 - 99 02/04/2018 [facility] CHEM PANEL Sodium Lvl 142 135 - 145 02/04/2018 [facility] CHEM PANEL eGFR 90 02/03/2018 Result Comment: The eGFR is calculated using the CKD-EPI formula. In most young, healthy individuals the eGFR will be >90 mL/min/1.73m2. The eGFR declines with age. An eGFR of 60-89 may be normal in some populations, particularly the elderly, for whom the CKD-EPI formula has not been extensively validated. Use of the eGFR is not recommended in the following populations:

Individuals with unstable creatinine concentrations, including patients and those with serious co-morbid conditions.

Patients with extremes in muscle mass or diet.

The data above are obtained from the National Kidney Disease Education Program (NKDEP) which additionally recommends that when the eGFR is used in patients with extremes of body mass index for purposes of drug dosing, the eGFR should be multiplied by the estimated BMI. [facility] CHEM PANEL BUN 4 7 - 22 02/03/2018 [facility] CHEM PANEL Glucose Lvl 89 70 - 99 02/03/2018 [facility] CHEM PANEL AST 29 0 - 37 02/03/2018 [facility] CHEM PANEL Alk Phos 120 39 - 136 02/03/2018 [facility] CHEM PANEL A/G Ratio 0.9 0.7 - 1.6 02/03/2018 [facility] CHEM PANEL Globulin 3.3 2.7 - 4.2 02/03/2018 [facility] CHEM PANEL ALT 33 0 - 65 02/03/2018 [facility] CHEM PANEL Albumin Lvl 3.0 3.5 - 5.0 02/03/2018 [facility] CHEM PANEL Calcium Lvl 8.5 8.5 - 10.5 02/03/2018 [facility] CHEM PANEL AGAP 14.9 10.0 - 20.0 02/03/2018 [facility] CHEM PANEL B/C Ratio 8 6 - 25 02/03/2018 [facility] CHEM PANEL Total Protein 6.3 6.4 - 8.4 02/03/2018 [facility] CHEM PANEL CO2 23 24 - 32 02/03/2018 [facility] CHEM PANEL Sodium Lvl 145 135 - 145 02/03/2018 [facility] CHEM PANEL Creatinine Lvl 0.48 0.50 - 1.40 02/03/2018 [facility] CHEM PANEL Chloride Lvl 110 95 - 109 02/03/2018 [facility] CHEM PANEL Bili Total 0.3 0.2 - 1.3 02/03/2018 [facility] HEMATOLOGY Eosinophils # 0.1 0.0 - 0.5 02/03/2018 [facility] HEMATOLOGY Monocytes 7.4 2.0 - 12.0 02/03/2018 [facility] HEMATOLOGY Lymphocytes 24.1 20.0 - 40.0 02/03/2018 [facility] HEMATOLOGY Segs 66.7 45.0 - 75.0 02/03/2018 [facility] HEMATOLOGY Basophils 0.6 0.0 - 1.0 02/03/2018 [facility] HEMATOLOGY Eosinophils 1.2 0.0 - 4.0 02/03/2018 [facility] HEMATOLOGY Monocytes # 0.5 0.0 - 0.8 02/03/2018 [facility] HEMATOLOGY Lymphocytes # 1.6 1.0 - 5.5 02/03/2018 [facility] HEMATOLOGY Segs-Bands # 4.4 1.5 - 8.1 02/03/2018 [facility] HEMATOLOGY INR 1.10 0.85 - 1.17 02/03/2018 [facility] HEMATOLOGY PTT 33.7 22.9 - 35.8 02/03/2018 [facility] HEMATOLOGY PT 14.2 12.0 - 14.7 02/03/2018 [facility] HEMATOLOGY MCV 88.7 80.0 - 98.0 02/03/2018 [facility] HEMATOLOGY Hct 32.0 36.0 - 48.0 02/03/2018 [facility] HEMATOLOGY Hgb 10.7 12.0 - 16.0 02/03/2018 [facility] HEMATOLOGY RBC 3.61 4.20 - 5.40 02/03/2018 [facility] WBC 6.7 3.7 - 10.4 02/03/2018 [facility] MCH 29.7 27.0 - 31.0 02/03/2018 [facility] MPV 9.5 7.4 - 10.4 02/03/2018 [facility] HEMATOLOGY Platelet 259 133 - 450 02/03/2018 [facility] RDW 13.9 11.5 - 14.5 02/03/2018 [facility] MCHC 33.5 32.0 - 36.0 02/03/2018 [facility] TUMOR MARKERS AFP 2.1 0.0 - 11.0 02/02/2018 [facility] TUMOR MARKERS CEA 3.6 0.0 - 3.0 02/02/2018 [facility] TUMOR MARKERS CA 19-9 20.1 0.0 - 35.0 02/02/2018 [facility] CHEM PANEL Magnesium Lvl 2.5 1.8 - 2.4 02/02/2018 [facility] CHEM PANEL Phosphorus 3.5 2.5 - 4.5 02/02/2018 [facility] HEMATOLOGY Monocytes # 0.4 0.0 - 0.8 02/02/2018 [facility] HEMATOLOGY Segs-Bands # 8.9 1.5 - 8.1 02/02/2018 [facility] HEMATOLOGY Lymphocytes # 1.3 1.0 - 5.5 02/02/2018 [facility] HEMATOLOGY Basophils 0.3 0.0 - 1.0 02/02/2018 [facility] HEMATOLOGY Lymphocytes 12.1 20.0 - 40.0 02/02/2018 [facility] HEMATOLOGY Monocytes 3.8 2.0 - 12.0 02/02/2018 [facility] HEMATOLOGY Eosinophils 0.1 0.0 - 4.0 02/02/2018 [facility] HEMATOLOGY Segs 83.7 45.0 - 75.0 02/02/2018 [facility] HEMATOLOGY RDW 13.9 11.5 - 14.5 02/02/2018 [facility] HEMATOLOGY Platelet 264 133 - 450 02/02/2018 [facility] MPV 9.4 7.4 - 10.4 02/02/2018 [facility] MCHC 33.6 32.0 - 36.0 02/02/2018 [facility] WBC 10.6 3.7 - 10.4 02/02/2018 [facility] MCH 29.7 27.0 - 31.0 02/02/2018 [facility] MCV 88.3 80.0 - 98.0 02/02/2018 [facility] Hct 32.8 36.0 - 48.0 02/02/2018 [facility] Hgb 11.0 12.0 - 16.0 02/02/2018 [facility] RBC 3.71 4.20 - 5.40 02/02/2018 [facility] CHEM PANEL Bili Indirect >0.3 0.0 - 1.0 02/02/2018 [facility] CHEM PANEL Globulin 3.6 2.7 - 4.2 02/02/2018 [facility] CHEM PANEL A/G Ratio 0.9 0.7 - 1.6 02/02/2018 [facility] CHEM PANEL Total Protein 6.7 6.4 - 8.4 02/02/2018 [facility] CHEM PANEL Alk Phos 139 39 - 136 02/02/2018 [facility] CHEM PANEL Bili Total 0.4 0.2 - 1.3 02/02/2018 [facility] CHEM PANEL Bili Direct <0.1 0.0 - 0.3 02/02/2018 [facility] CHEM PANEL AST 40 0 - 37 02/02/2018 [facility] CHEM PANEL Albumin Lvl 3.1 3.5 - 5.0 02/02/2018 [facility] CHEM PANEL ALT 38 0 - 65 02/02/2018 [facility] URINE AND STOOL Occult Bld Stl Negative (02/01/18 6:10 PM) Negative 02/01/2018 [facility] URINE AND STOOL Fecal Leukocyte None Seen (02/01/18 6:10 PM) 02/01/2018 [facility] Culture: Stool Normal Enteric Shante Isolated No Salmonella, Shigella, Or Campylobacter Isolated 02/01/2018 [facility] MOLECULAR DIAGNOSTIC C difficile DNA Negative (02/01/18 1:39 PM) Negative 02/01/2018 [facility] URINE AND STOOL UA Leuk Est Negative (02/01/18 12:19 PM) Negative 02/01/2018 [facility] URINE AND STOOL UA Nitrite Negative (02/01/18 12:19 PM) Negative 02/01/2018 [facility] URINE AND STOOL UA Urobilinogen 2.0 0.1 - 1.0 02/01/2018 [facility] URINE AND STOOL UA Blood Negative (02/01/18 12:19 PM) Negative 02/01/2018 [facility] URINE AND STOOL UA Mucus Few /LPF None Seen /LPF 02/01/2018 [facility] URINE AND STOOL UA RBC 2 0 - 2 02/01/2018 [facility] URINE AND STOOL UA WBC 3 0 - 5 02/01/2018 [facility] URINE AND STOOL UA Sq Epi Occasional /LPF Few /LPF 02/01/2018 [facility] URINE AND STOOL UA Bili Negative *NA* (02/01/18 12:19 PM) Negative 02/01/2018 [facility] URINE AND STOOL UA Ketones Negative mg/dL Negative mg/dL 02/01/2018 [facility] [address] URINE AND STOOL UA Glucose Negative mg/dL Negative mg/dL 02/01/2018 [facility] [address] URINE AND STOOL UA Protein 30 mg/dL Negative mg/dL 02/01/2018 [facility] URINE AND STOOL UA pH 6.0 5.0 - 8.0 02/01/2018 [facility] URINE AND STOOL UA Spec Grav 1.011 <=1.030 02/01/2018 [facility] URINE AND STOOL UA Turbidity Clear (02/01/18 12:19 PM) Clear 02/01/2018 [facility] URINE AND STOOL UA Color Yellow *NA* (02/01/18 12:19 PM) Yellow 02/01/2018 [facility] CARDIAC ENZYMES CK MB 2.7 0.5 - 3.6 02/01/2018 [facility] CARDIAC ENZYMES Total CK 193 12 - 191 02/01/2018 [facility] CARDIAC ENZYMES Troponin-I <0.02 0.00 - 0.40 02/01/2018 [facility] CARDIAC ENZYMES CK MB Index 1.4 0.0 - 2.5 02/01/2018 [facility] CHEM PANEL A/G Ratio 0.9 0.7 - 1.6 02/01/2018 [facility] CHEM PANEL Globulin 4.0 2.7 - 4.2 02/01/2018 [facility] CHEM PANEL B/C Ratio 11 6 - 25 02/01/2018 [facility] CHEM PANEL Alk Phos 138 39 - 136 02/01/2018 [facility] CHEM PANEL Bili Total 0.4 0.2 - 1.3 02/01/2018 [facility] CHEM PANEL Albumin Lvl 3.5 3.5 - 5.0 02/01/2018 [facility] CHEM PANEL AST 46 0 - 37 02/01/2018 [facility] CHEM PANEL ALT 41 0 - 65 02/01/2018 [facility] CHEM PANEL Total Protein 7.5 6.4 - 8.4 02/01/2018 [facility] CHEM [facility] Lipase Lvl 147 73 - 393 02/01/2018 [facility] HEMATOLOGY PTT 30.2 22.9 - 35.8 02/01/2018 [facility] HEMATOLOGY PT 12.7 12.0 - 14.7 02/01/2018 [facility] HEMATOLOGY INR 0.95 0.85 - 1.17 02/01/2018 [facility] Pathology Reports No Data Provided for This Section Diagnostic Reports Report Value Date Source Abdomen/Pelvis wo IV contrast CT STUDY: Abdomen/Pelvis wo IV contrast CT 03/06/2019 7:07 PM CDT Ordering Physician: Maria Elena Martinez MD Patient Name: TONY PIKE MR: [id number] : 1930; Age: 88 years y/o Female Clinical Indication: Generalized abdominal pain and vomiting. Comparison: 02/01/2018 TECHNIQUE: Multiple contiguous noncontrast transaxial CT images were obtained through the abdomen and pelvis. Sagittal and coronal reformatted images were prepared. CT imaging performed at this location utilizes radiation dose optimization techniques which include one or more of the following: -Automated exposure control -Adjustment of the mA and/or kV accordin g to patient size -Use of iterative reconstruction techniq ue DLP: 962.40 mGy-cm CT ABDOMEN AND PELVIS WITHOUT CONTRAST: VISUALIZED LUNG BASES: 1. Mild bilateral basilar subsegmental atelectasis and scarring. 2. Heart size at the upper limits of no rmal associated with mild coronary calcifications and small low-attenuation pericardial effusion. BOWEL GAS: Nonspecific nonobstructed bowel gas pattern associated with colonic diverticulosis greatest in the descending colon and sigmoid colon without pericolonic inflammation to suggest acute diverticulitis. APPENDIX: The appendix is not identified with certainty, but no pericecal inflammation is appreciated. With possible appendectomy. No pericecal inflammation. STOMACH: Underdistended thick-walled stomach associated with a small to moderate-sized thick-walled hiatal hernia and gastroesophageal reflux. PERITONEUM AND MESENTERY: Free Air: No evidence of pneumoperitoneum. Free Fluid: No evidence of significant free fluid, loculated fluid, peripherally enhancing abscess, or hemorrhage. Mesenteric and peritoneal fat: Normal without focal lesion or inflammation. LYMPH NODES: Scattered subcentimeter central mesenteric, retroperitoneal, and upper abdominal lymph nodes without lymphadenopathy or mass. VASCULAR: Abdominal Aorta: Normal caliber nonenhanced mildly atherosclerotic abdominal aorta. IVC: Normal caliber nonenhanced. ABDOMINAL ORGANS: Liver: Normal size with diffusely decreased attenuation consistent with steatosis. Gallbladder: Postoperative change of cholecystectomy. Biliary Tree: Normal without dilatation. Kidneys: Mild bilateral renal cortical atrophy with a 2.2 cm lesion at 38 Hounsfield units in the right superior pole most consistent with a complex or hemorrhagic cyst. Adrenal Glands: Normal nonenhanced without discrete lesion. Pancreas: Normal nonenhanced without discrete lesion. Spleen: Normal nonenhanced without discrete lesion. PELVIC ORGANS: Urinary bladder: Normal nonenhanced appropriate for degree of distention. Reproductive organs: Normal nonenhanced uterus and adnexa. SOFT TISSUES: No suspicious soft tissue lesion or abnormality. OSSEOUS STRUCTURES: Mild to moderate lumbar spondylosis and facet arthrosis. Old T12 compression fracture with approximately 50% loss of height and mild retropulsion of fragments causing mild spinal canal narrowing. IMPRESSION: 1. Nonspecific bowel gas pattern associ ated with mild diverticulosis. 2. Small moderate-sized thick-walled hi atal hernia associated with gastroesophageal reflux. 3. Mild bilateral basilar subsegmental atelectasis and scarring. 4. Heart size at the upper limits of no rmal associated with mild coronary calcifications and small low-attenuation pericardial effusion. 5. Mild bilateral renal cortical atroph y with the 2.2 cm hyperattenuating right superior pole lesion likely a hemorrhagic cyst. 6. Mild to moderate lumbar spondylosis and facet arthrosis with old T12 compression fracture with approximately 50% loss of height and mild retropulsion of fragments causing mild spinal canal narrowing. 7. Hepatic steatosis. 8. Cholecystectomy. SL: TPAREBECCA- 03/06/2019 [facility] Chest 1view DX EXAM: AP radiog raph of the chest, 1 image obtained INDICATION: Shortness of breath COMPARISON: 02/01/2018 chest radiographs FINDINGS: Heart, mediastinum, and pulmonary vessels are within normal limits. Mild right basilar atelectasis is present. No consolidation, pneumothorax, or pleural effusion. No acute osseous abnormalities identified. IMPRESSION: No acute cardiopulmonary findings. SL: KENDRICK 03/06/2019 [facility] Abdomen/Pelvis wo IV contrast CT Clinical Indication: On Cipro for months. Diarrhea for one week. Abdominal pain and hemorrhoids bleeding. Comparison: None. TECHNIQUE: Noncontrast helical imaging was performed without IV contrast from diaphragm to the symphysis pubis regions. Multiplanar coronal and sagittal reformations are obtained. CT imaging was performed with exposure control parameters to reduce radiation dose. Oral contrast: None. CT Radiation Dose: DLP = 835.73 mGy-cm FINDINGS: This examination is limited for the evaluation of solid organs and vascular structures due to withheld intravenous contrast. LOWER CHEST: Right lower lobe posterior basilar segment noncalcified soft tissue attenuation 5 x 6 mm nodule is seen (series 2, image 8). Recommend follow-up per Fleischner Society guidelines. NON-CONTRAST ENHANCED SOLID ORGANS: LIVER: Unremarkable. The patient is status post prior cholecystectomy. INTRAHEPATIC BILE DUCT AND EXTRAHEPATIC BILE DUCT: Mild central intrahepatic biliary ductal dilatation is seen. Dilated extrahepatic/common bile duct is seen measuring 1.3 cm. There are no calcified stones. Magnetic resonance angiogram time performed, if there is further clinical concern. PANCREAS: Unremarkable. SPLEEN: Unremarkable. ADRENALS: Unremarkable. KIDNEYS: No urinary calculi, hydronephrosis or perinephric stranding. Right kidney upper pole complex heterogeneous attenuation 1.2 x 1.9 cm lesion is seen. Recommend sonography for further assessment. NON-CONTRAST OPACIFIED STOMACH AND BOWEL: STOMACH: Unremarkable. BOWEL: The non-contrast opacified small bowel loops in the abdomen and pelvis appear unremarkable. The noncontrast opacified colonic loops in the abdomen and pelvis show moderate to severe constipation with severe fecal impaction. There is mild to moderate perirectal and presacral fat stranding and inflammatory changes. Mild sigmoid colonic and moderate rectal wall thickening is seen. This may be related to mild the distal colitis and proctitis. Some scattered colonic diverticula are seen. The appendix is not seen on the CT. The lack of orally administered contrast material limits bowel assessment. PERITONEUM AND RETROPERITONEUM: No ascites or free air. No other fluid collection. There is no aortic aneurysm seen. LYMPH NODES: Some calcified periportal lymph nodes are seen, system of old granulomatous disease. There is no para-aortic or aortocaval lymphadenopathy. PELVIS: No pelvic mass or adenopathy. Small uterus is seen which appears unremarkable. Some surgical clips are seen in the left pelvis. Recommend correlation with surgical history. BLADDER: Unremarkable. OSSEOUS STRUCTURES: Superior endplate compression fracture of the T12 vertebral body seen with 30% vertebral body height loss, age undetermined. There is mild kyphotic curvature of the thoracic spine above this level. SOFT TISSUES: Unremarkable. IMPRESSION: 1. Moderate to severe constipation with severe fecal impaction. Mild to moderate perirectal and presacral fat stranding and inflammatory changes. Mild sigmoid colonic and moderate rectal wall thickening. This may be related to mild the distal colitis and proctitis. Some scattered colonic diverticula. 2. Superior endplate compression fractur e of the T12 vertebral body with 30% vertebral body height loss, age undetermined. 3. Status post prior cholecystectomy wit h dilated extrahepatic/common bile duct. Magnetic resonance cholangiopancreatography may be performed for complete assessment. 4. Right lower lobe posterior basilar se gment 5 x 6 mm nodule. Recommend follow- up per Fleischner Society lungs. 2017 - Guidelines for Management of Inci dental Pulmonary Nodules Dectected on CT: From the Fleischner Society. Radiol 2017: 0; 1-16 SOLID NODULES: Single Nodule Size* Low Risk\\S\\ High Risk <6mm No follow up needed Optional at 12 mos. 6-8mm CT at 6-[address] at 6-12 [address] then consider CT at [address] at 18 to [address] >[address], PET/CT or mos. Consider CT, tissue sampling at 3 mos. PET/CT or tissue sampling at 3 mos. Nodules <6 mm do not require routine follow-up, but certain patients at high risk with suspicious nodule morphology, upper lobe location or both may warrant 12 month follow-up. * Dimensions are average of long and short axes, rounded to the nearest mm \\S\\Low risk = minimal or absent history of smoking and of other age, sex, race and family history risk factors SL: [id number] 02/01/2018 [facility] Chest 1view DX Study: Chest 1v iew DX 02/01/2018 11:53 AM CDT Clinical Indication: -Chest pain; Comparison: Chest x-ray 02/07/2006 FINDINGS: The cardiac silhouette and pulmonary vasculature are normal for projection and degree of inspiration. No lobar consolidation, effusion, or pneumothorax. No pleural abnormalities are seen. No acute bony abnormalities. IMPRESSION: No acute intrathoracic abnormalities. SL: [id number] 02/01/2018 [facility] Consultation Notes No Data Provided for This Section Discharge Summaries No Data Provided for This Section History and Physicals No Data Provided for This Section Vital Signs Vital Sign Value Date Comments Source Respitory Rate 17 03/09/2019 [facility] Systolic (mm Hg) 127 03/09/2019 [facility] Diastolic (mm Hg) 48 03/09/2019 [facility] Heart Rate 68 03/09/2019 [facility] Temperature Oral (F) 98 F 03/09/2019 [facility] Temperature Oral (F) 98.0 F 03/09/2019 [facility] Systolic (mm Hg) 156 03/09/2019 [facility] Diastolic (mm Hg) 65 03/09/2019 [facility] Respitory Rate 18 03/09/2019 [facility] Heart Rate 63 03/09/2019 [facility] Systolic (mm Hg) 132 03/09/2019 [facility] Diastolic (mm Hg) 53 03/09/2019 [facility] Respitory Rate 18 03/09/2019 [facility] Heart Rate 65 03/09/2019 [facility] Temperature Oral (F) 97.8 F 03/09/2019 [facility] Weight 71.477 03/07/2019 [facility] Weight 72.727 03/06/2019 [facility] BMI Calculated 28.4 03/06/2019 [facility] Height 160.02 cm 03/06/2019 [facility] BMI Calculated 30.29 03/06/2019 [facility] Weight 72.727 03/06/2019 [facility] Height 154.94 cm 03/06/2019 [facility] Heart Rate 77 03/06/[facility] Systolic (mm Hg) 141 03/06/2019 [facility] Diastolic (mm Hg) 84 03/06/2019 [facility] Height 152.4 cm 12/24/2018 [facility] Weight 72.727 12/24/2018 [facility] BMI Calculated 31.31 12/24/2018 [facility] Heart Rate 97 02/05/2018 [facility] Temperature Oral (F) 97.4 F 02/05/2018 [facility] Respitory Rate 18 02/05/2018 [facility] Systolic (mm Hg) 134 02/05/2018 [facility] Diastolic (mm Hg) 83 02/05/2018 [facility] Heart Rate 99 02/05/2018 [facility] Temperature Oral (F) 98.3 F 02/05/2018 [facility] Systolic (mm Hg) 128 02/05/2018 [facility] Diastolic (mm Hg) 75 02/05/2018 [facility] Respitory Rate 18 02/05/2018 [facility] Heart Rate 86 02/05/2018 [facility] Systolic (mm Hg) 131 02/05/2018 [facility] Diastolic (mm Hg) 67 02/05/2018 [facility] Temperature Oral (F) 98.3 F 02/05/2018 [facility] Respitory Rate 18 02/04/2018 [facility] BMI Calculated 25.83 02/01/2018 [facility] Weight 60 0 02/01/2018 [facility] Height 152.4 cm 02/01/2018 [facility] BMI Calculated 26.51 02/01/2018 [facility] Weight 63.636 02/01/2018 [facility] Height 154.94 cm 02/01/2018 [facility] Encounters Location Location Details Encounter Type Encounter Number Reason For Visit Attending Provider ADM Date DC Date Status Source Outpatient [id number] DWIGHT DAVIS 02/01/2018 [facility] Colorectal [facility] Outpatient [id number] Rosalina Zapien 02/01/2018 02/02/2018 [facility] Inpatient [id number] Zi Goldstein 02/01/2018 02/05/2018 [facility] Outpatient [id number] Fab Rodriguez 12/24/2018 12/25/2018 [facility] Outpatient [id number] Hector Finley 03/06/2019 [facility] Outpatient [id number] Hector Finley 03/06/2019 03/07/2019 [facility] Inpatient [id number] Maria Elena Martinez 03/06/2019 03/09/2019 [facility] Procedures Procedure Code Date Perfomer Comments Source Repair of cystocele [id number] 09/04/2005 [facility] Sling procedure of bladder neck [id number] 09/04/2005 [facility] Assessment and Plan Assessment and Plan Date Source Extracted from:Title: Discharge Summary * Author: Maria Elena Martinez MD Date: 03/09/19 Discharge Information Disposition: Memory care unit Condition: Stable exam medications: See med reconciliation form Diet: Heart healthy Discharge Plan In the event of any worsening symptoms patient was a come back to the ED for further evaluation Discharge summary to greater than 35 minutes Extracted from:Title: Clinical Document Author: Maria Elena Martinez MD Date: 03/08/19 Progress Note SUBJECTIVE: Patient seen and evaluated at bedside. No overnight events. Denies chest pain, nausea, vomiting, diarrhea, headache, lightheadness, abdomen pain or dizziness. OBJECTIVE: Vitals Tmp(F) Pulse BP RR SpO2 FIO2 03/08 16:55 97.9 --- ----- - - --- --- 03/08 16:02 ---- 59 142/62 1 6 91 --- 03/08 15:30 ---- 60 156/63 1 6 92 --- 03/08 15:00 ---- 57 152/63 1 5 --- --- 03/08 14:45 ---- 57 151/68 1 7 --- --- 24 Hr Tmax: 98.2F (36.78c) at 03/08 04:0 0 Vital Signs are the last 5 in the past 48 hours. I&O Record In Out Bal 03/08 24hr Tot 300 0 300 03/07 24hr Tot 1433 0 1433 Labs (Last four charted values) WBC 6.5 (MAR 08) 8.1 (MAR 07) H 10.7 (MAR 06) H 11.4 (MAR 06) Hgb 12.6 (MAR 08) 14.0 (MAR 07) 13.2 (MAR 06) 13.9 (MAR 06) Hct 38.1 (MAR 08) 42.1 (MAR 07) 38.9 (MAR 06) 40.9 (MAR 06) Plt 219 (MAR 08) 222 (MAR 07) 245 (MAR 06) 280 (MAR 06) Na 137 (MAR 08) L 133 (MAR 07) L 125 (MAR 06) K 4.3 (MAR 08) L 3.1 (MAR 07) C 2.7 (MAR 06) CO2 L 22 (MAR 08) L 22 (MAR 07) 26 (MAR 06) Cl 108 (MAR 08) 99 (MAR 07) L 89 (MAR 06) Cr 0.83 (MAR 08) 0.78 (MAR 07) 0.87 (MAR 06) BUN 9 (MAR 08) L 6 (MAR 07) 7 (MAR 06) Glucose Random 84 (MAR 08) 92 (MAR 07) H 103 (MAR 06) Mg 1.9 (MAR 07) Ca 9.1 (MAR 08) 8.9 (MAR 07) 9.7 (MAR 06) PT 12.6 (MAR 06) INR 0.96 (MAR 06) PTT H 69.8 (MAR 07) H 63.8 (MAR 07) 33.8 (MAR 06) Troponin C 0.85 (MAR 07) C 1.10 (MAR 06) C 1.00 (MAR 06) Medications () Active Scheduled: (6) atorvastatin 10 mg TAB 10 mg 1 tab, PO, Bedtime clopidogrel 75 mg TAB 75 mg 1 tab, PO, Daily memantine 5 mg tab 10 mg 2 tab, PO, BID metoprolol tartrate 25 mg TAB 25 mg 1 tab, PO, Q12H pantoprazole 40 mg ECT 40 mg 1 tab, PO, Daily risperiDONE 0.25 mg TAB 0.25 mg 1 tab, PO, Daily Continuous: (0) PRN: (25) acetaminophen 325 mg TABLET 650 mg 2 tab, PO, Q6H acetaminophen-hydrocodone 325 mg-5 mg tab 1 tab, PO, Q6H ALPRAZolam 0.5 mg TAB 0.5 mg 1 tab, PO, BID benzonatate 100 mg CAP 100 mg 1 cap, PO, TID bisacodyl 10 mg rect SUPP 10 mg 1 supp, UT, Daily Dextrose 50% 50 ml INJ syringe 12.5 gm 25 mL, IVP, PRN Dextrose 50% 50 ml INJ syringe 25 gm 50 mL, IVP, PRN diphenhydrAMINE 25 mg Tab 25 mg 1 tab, PO, Q6H docusate sodium 100 mg CAP 100 mg 1 cap, PO, BID glucagon recombinant 1 mg PDR 1 mg, IM, PRN guaiFENesin LA 600 mg ERT 600 mg 1 tab, PO, Q12H guaiFENesin-codeine 100-10mg/5ml LIQ 10 ml, PO, Q4H heparin 1000 unit/1ml 10 ml INJ VL 3,600 unit 3.6 mL, IVP, PRN heparin 1000 unit/1ml 10 ml INJ VL 1,800 unit 1.8 mL, IVP, PRN hydrALAZINE 20 mg/1 ml VL 10 mg 0.5 mL, IVP, Q4H Maalox Advanced Regular 30ml SUSP 30 mL, PO, QID-After Meals melatonin 3 mg TAB 3 mg 1 tab, PO, Bedtime MORPhine sulfate PF 4 mg/mL INJ VL 2 mg 0.5 mL, IVP, Q4H nicotine 21 mg/24hr PATCH 21 mg 1 patch, TOP, Daily ondansetron 4 mg/2ml INJ VL 4 mg 2 mL, IVP, Q6H polyethylene glycol 17 gm packet 17 gm 1 pkt, PO, Daily QUEtiapine 25 mg TAB 25 mg 1 tab, PO, BID simethicone 80 mg CHEW 80 mg 1 tab, CHEW, QID-After Meals sodium chloride 0.9% 10 ml flush syr BD 10 mL, IVP, PRN trazodone 50 mg TAB 50 mg 1 tab, PO, Bedtime PHYSICAL EXAM: General: Alert and oriented, No acute distress. Eye: Pupils are equal, round and reactive to light, Extraocular movements are intact, Normal conjunctiva. HENT: Normocephalic, Dehydration. Neck: Supple, Non-tender, No jugular venous distention. Respiratory: Lungs are clear to auscultation, Respirations are non-labored, Breath sounds are equal. Cardiovascular: Normal rate, Regular rhythm, No murmur. Gastrointestinal: Soft, Non-tender, Non-distended, Normal bowel sounds. Genitourinary: No costovertebral angle tenderness. Musculoskeletal Normal range of motion. Normal strength. Integumentary: Warm, Dry. Neurologic: Alert, Oriented. Cognition and Speech: Oriented, Speech clear and coherent. Psychiatric: Cooperative, Appropriate mood and affect. 12/24/2018 2D echo: Conclusions 1) The left ventricular chamber size is normal. 2) There is no left ventricular hypertro phy observed. 3) There is normal left ventricular syst olic function. 4) Global left ventricular wall motion a nd contractility are within normal limits. 5) The LV ejection fraction is estimated at 55%-60%. 6) Abnormal left ventricular diastolic f illing is observed, consistent with impaired LV relaxation. 7) The tricuspid valve leaflets appear m orphologically normal. 8) There is mild tricuspid regurgitation . 9) The right ventricular systolic pressu re was calculated at 28 mmHg. Chest x-ray: Negative Impression and Plan 1. NSTEMi 2. Hyponatremia/hypokalemia 3. Nausea/vomiting/dehydration 4. Baseline dementia 5. Hypertension Plan: Left heart cath performed 03/08/2019 with no PCI needed, mild disease on the LAD, Plavix change from aspirin Low-dose IV fluids, replace potassium Antinausea medication, IV fluids Resume memantine Resume same home diabetes medications, PRN hydralazine PT/OT eval Discussed with family at bedside Discharge planning:Per cardiology patient can be discharged home in the morning. Extracted from:Title: General Admission H&P * Author: Maria Elena Martinez MD Date: 03/06/19 Impression and Plan 1. NSTEMi 2. Hyponatremia/hypokalemia 3. Nausea/vomiting/dehydration 4. Baseline dementia 5. Hypertension Plan: Trend troponins, heparin drip, cardioprotective meds, aspirin, statin, cardiology consultation Low-dose IV fluids, replace potassium Antinausea medication, IV fluids Resume memantine Resume same home diabetes medications, PRN hydralazine PT/OT eval Heparin drip for DVT prophylaxis Spent more than 40 minutes of critical care time on this case 03/09/2019 [facility] Extracted from:Title: GI Author: Sujata Paz NP Date: 02/05/18 Progress Note - Daily [facility] Completed: , FEB 05, 2018, 19:25 by Sujata Paz NP RM: 117 - 1P, SE C1B TONY PIKE 87y (: 1930) F Attending: Zi Goldstein MD Service: Internal Medicine Reason for Admission: ACUTE DIARRHEA, GENERALIZED WEAKNESS Working DRG: Esophagitis, gastroent and misc digest disorders w/o CARE HOME Code status: Full Code [Ordered] Current diet: Isolation: No Isolation/Standard Precautions Allergies: ibuprofen, iodine containing compounds, macrobyt, zitromax, sulfa drugs, penicillins SUBJECTIVE no new complaints denies abd pain confused OBJECTIVE 24hr Labs 02/05 0613 Potassium Lvl 4.0 Glucose Lvl 92 BUN 7 Creatinine Lvl 0.62 Sodium Lvl 142 Potassium Lvl 4.0 Chloride Lvl 111 H CO2 23 L AGAP 12.0 Calcium Lvl 8.9 eGFR 82 WBC 7.5 RBC 3.80 L Hgb 11.3 L Hct 33.9 L MCV 89.2 MCH 29.8 MCHC 33.4 RDW 14.3 Platelet 247 MPV 9.3 Segs 63.8 Monocytes 7.8 Lymphocytes 25.5 Eosinophils 2.4 Basophils 0.5 Segs-Bands # 4.8 Lymphocytes # 1.9 Monocytes # 0.6 Eosinophils # 0.2 Crouhc still necessary (Yes/No): Line still necessary (Yes/No): Vitals Tmp(F) Pulse BP RR SpO2 FIO2 02/05 11:31 97.4 97 134/83 1 8 --- --- 02/05 07:42 98.3 99 128/75 1 8 --- --- 02/05 03:28 98.3 86 131/67 - - 97 --- 02/04 23:03 98.0 90 131/75 - - 94 --- 02/04 20:26 97.4 81 136/66 - - 100 --- 24 Hr Tmax: 98.3F (36.83c) at 02/05 07:4 2 Vital Signs are the last 5 in the past 48 hours. Date Wt(kg) Wt(lb) Ht(cm) Ht(in) Method 02/01 (initial) 63.64 140.00 Estimated 02/01 154.94 61.00 Stated I&O Record In Out Bal 02/05 24hr Tot 610 0 610 02/04 24hr Tot 2345 0 2345 Medications (1) Active Scheduled Meds: None Unscheduled Meds: None PRN Meds: None One Time Meds (1): 02/04/18 (not done) potassium chloride (potassium chloride 20 mEq/15 mL oral liquid) 40 mEq PO ONCE Continuous Infusions: None IMPRESSION 1. s/p Colonoscopy and EGD 02/03/18- Possible Colitis in rectum and sigmoid, Mild narrowing at the anastomosis with a small tiny ulceration, biopsies taken. Gastritis without bleeding and esophagitis 2.Fecal impaction -s/p manual disimpaction by CR sx- having BMs 3. diarrhea- likely overflow from impaction - improved - c diff negative 4. Dementia 5. Abnormal CT scan- The noncontrast opa cified colonic loops in the abdomen and pelvis show moderate to severe constipation with severe fecal impaction. There is mild to moderate perirectal and presacral fat stranding and inflammatory changes. Mild sigmoid colonic and moderate rectal wall thickening is seen. This may be related to mild the distal colitis and proctitis. Some scattered colonic diverticula are seen. CBD 1.3 cm 6. Abnormal LFTs, normal bili - resolved 7. Decreased appetite and weight loss. 8. Leukocytosis- resolved 9. hypokalemia- resolved RECOMMENDATIONS 1. Monitor BMs 2. Continue abx 3. bowel regimen 4. PPI QD 5. High fiber diet 6. Follow biopsy results 7. Follow up in GI clinic with Dr. Luann gold 2 weeks after d/c Extracted from:Title: GI Consult * Author: Eduin Null MD Date: 02/02/18 Impression and Plan IMPRESSION 1. Fecal impaction -s/p manual disimpaction by CR sx 2. diarrhea- likely overflow from impact ion - c diff negative 3. Dementia 4. Abnormal CT scan- The noncontrast opa cified colonic loops in the abdomen and pelvis show moderate to severe constipation with severe fecal impaction. There is mild to moderate perirectal and presacral fat stranding and inflammatory changes. Mild sigmoid colonic and moderate rectal wall thickening is seen. This may be related to mild the distal colitis and proctitis. Some scattered colonic diverticula are seen. CBD 1.3 cm 5. Abnormal LFTs, normal bili 6. Decreased appetite and weight loss. 7. Leukocytosis 8. hypokalemia RECOMMENDATIONS 1. Monitor BMs 2. IV abx 3. bowel regimen 4. Consents for EGD and colonoscopy, alt ernatives, risks and complications discussed 5. CA 19-9, CEA, AFP 6. Clear liquids, NPO after midnight 7. Bowel prep 8. electrolyte replacement per primary GI Attending I have examined the patient with the Nurse Practitioner and confirmed the essential components of history, physical examination, diagnosis and treatment plan. I agree with the patient's care as documented by the Nurse Practitioner. D/W Family Extracted from:Title: General Admission H&P * Author: Zi Goldstein MD Date: 02/01/18 Impression and Plan Impression: acute colitis Fecal impaction Dementia Hypertension Dyslipidemia Hypokalemia Normocytic anemia Internal hemorrhoids Plan: We will admit to medicine Activity as tolerated Vitals per unit policy Diet clear liquid We will get GI and colorectal surgery evaluation for fecal impaction We will start on empiric IV Flagyl Check for C. difficile We will reconcile home medication available Zofran as needed as an antiemetic Prognosis guarded 02/05/2018 [facility] Plan of Care No Data Provided for This Section Social History Social History Date Source Social History TypeResponse Smoking Status Never smoker; Type: Cigarettes; Exposure to Tobacco Smoke None; Cigarette Smoking Last 365 Days No; Reg Smoking Cessation Counseling No entered on: 03/06/19 03/06/2019 [facility] Social History TypeResponse Smoking Status Never smoker; Type: Cigarettes; Exposure to Tobacco Smoke None; Cigarette Smoking Last 365 Days No; Reg Smoking Cessation Counseling No entered on: 03/06/19 03/06/2019 [facility] Family History No Data Provided for This Section Advance Directives No Data Provided for This Section Functional Status No Data Provided for This Section
[2020-07-24] MEDS ORDERED: MORPHINE SULFATE 2 MG/ML SYR 1ML IV PRN (17:00)
[2020-07-24 17:10] LABS: BASOPHILS % 0.3 % (0.0-1.0); EOSINOPHILS # (AUTO) 0.1 (0.0-0.4); EOSINOPHILS % 0.5 % (0.0-6.0); HEMATOCRIT 41.4 % (34.2-44.1); HEMOGLOBIN 13.1 g/dL (12.0-16.0); LYMPHOCYTES % 20.1 % (18.0-39.1); MEAN CORPUSCULAR HEMOGLOBIN 28.5 pg (28-32); MEAN CORPUSCULAR HGB CONC 31.6 g/dL (31-35); MONOCYTES # (AUTO) 0.5 (0.2-0.8); NEUTROPHILS # (AUTO) 7.4 (2.1-6.9); NEUTROPHILS % 73.7 % (38.7-80.0); PLATELET COUNT 172 x10e3/uL (140-360); RED CELL DISTRIBUTION WIDTH 13.8 % (11.7-14.4)
--- OUTSIDE RECORDS SUMMARY | 2020-07-24 17:10 | XMS REPORT | Continuity of Care Document ---
Author Author Jose Critical Links TONY Pagan Pint Please Address Unknown Phone Unavailable Care Team Providers Care Equipment Scheduler Name Role Phone ASOCS Information [employer] Unavailable Un available Problems Problem Status Onset Date Classification Date Reported Comments Source VOMITING Active 03/06/2019 [facility] NON-ST ELEVATION WI(NSTEMI),ACUTE HYPOKA Active 03/06/2019 [facility] Other forms of dyspnea 12/30/2018 07/14/2019 [facility] DX: R06.09 Active 12/22/2018 [facility] Noninfective gastroenteritis and colitis, unspecified 02/11/2018 05/14/2018 [facility] ACUTE DIARRHEA, GENERALIZED WEAKNESS Active 02/01/2018 [facility] DIAREHA Active 02/01/2018 [facility] Dementia (disorder) Resolved Problem [facility], systemic arterial (disorder) Resolved Problem 07/14/2019 [facility] Ulcer of intestine 05/14/2018 [facility] Anemia, unspecified 05/14/2018 [facility] Unspecified dementia without behavioral disturbance 05/14/2018 [facility] Hyperlipidemia, unspecified 05/14/2018 [facility] Anxiety disorder, unspecified 05/14/2018 [facility] Essential (primary) hypertension 05/14/2018 [facility] Weakness 05/14/2018 [facility] Hypokalemia 05/14/2018 [facility] Other hemorrhoids 05/14/2018 [facility] Elevated white blood cell count, unspecified 05/14/2018 [facility] Gastritis, unspecified, without bleeding 05/14/2018 [facility] Esophagitis, unspecified 05/14/2018 [facility] DIARRHEA, UNSPECIFIED Active [facility] WEAKNESS Active [facility] OTHER FORMS OF DYSPNEA Active [facility] NON-ST ELEVATION (NSTEMI) MYOCARDIAL INF Active [facility] HYPOKALEMIA Active [facility] HYPO-OSMOLALITY AND HYPONATREMIA Active [facility] Medications Medication Details Route Status Patient Instructions Ordering Provider Order Date Source clopidogrel 75 mg oral tablet 75 mg = 1 tab, PO, Daily, # 30 tab, 1 Refill(s), Pharmacy: [facility] [id number] Active 03/09/2019 [facility] losartan 25 mg oral tablet 25 mg = 1 tab, PO, Daily, # 30 tab, 0 Refill(s), Pharmacy: [facility] [id number] Active 03/09/2019 [facility] metoprolol tartrate 25 mg oral tablet 25 mg = 1 tab, PO, Q12H, # 60 tab, 0 Refill(s), Pharmacy: [facility] [id number] Active 03/09/2019 [facility] Plavix Notes: (Same As: Plavix) Inactive 03/09/2019 [facility] Plavix 300 mg, Route: PO, Drug form: TAB, ONCE, Dosing Weight 71.477, kg, Start date: 03/08/19 10:06:00 CDT, Stop date: 03/08/19 10:06:00 CDT Inactive 03/08/2019 [facility] Plavix Notes: ( Same as: Plavi x) Inactive 03/08/2019 [facility] potassium chloride 20 mEq oral tablet, [...] Patients with feeding tube less than 14 [place] (Dobhoff, J-tube etc) and pediatric and patients. Inactive 03/07/2019 [facility] metoprolol tartrate Notes: (Sa me as: Lopressor) No Longer Active 03/07/2019 [facility] potassium chloride 20 mEq oral tablet, [...] Patients with feeding tube less than 14 [place] (Dobhoff, J-tube etc) and pediatric and patients. Inactive 03/07/2019 [facility] Risperidone Notes: (Same as: R isperdal) No Longer Active 03/07/2019 [facility] Memantine Notes: (Same As: Nam enda) No Longer Active 03/07/2019 [facility] Protonix Notes: Tablet should not be chewed or crushed. (Same as: Protonix) No Longer Active 03/07/2019 [facility] Aspirin 81 MG Enteric Coated Tablet Notes: Do not crush or chew. (Same As: Ecotrin) No Longer Active 03/07/2019 [facility] Alprazolam 0.5 MG Oral Tablet [Xanax] Notes: With food or milk (Same as: Xanax) No Longer Active 03/07/2019 [facility] atorvastatin Notes: (Same As: Lipitor) No Longer Active 03/07/2019 [facility] NS 1000 mL 1,000 mL, Rate: 75 ml/hr, Infuse over: 13.3 hr, Route: IV, Dosing Weight 72.727 kg, Total Volume: 1,000, Start date: 03/06/19 18:59:00 CDT, Duration: 30 day, Stop date: 04/05/19 18:58:00 CDT, 1.82, m2 Inactive 03/06/2019 [facility] Seroquel Notes: (Same as: SERO quel) No Longer Active 03/06/2019 [facility] Hydralazine Notes: (Same as: A presoline) Push over 5 minutes No Longer Active 03/06/2019 [facility] Acetaminophen 325 MG / Hydrocodone Amanda trate 5 MG Oral Tablet [Sherburn 5/325] Notes: (Same as: Sherburn 325/5) Do not ex ceed 4gm/day of acetaminophen. No Longer Activ e 03/06/2019 [facility] Nicotine Notes: (Same as: Jayesh mcdonough) "Remove old patch before application of new patch" WASTE: F/P - P Waste Black; E - P Waste Black No Longer Active 03/06/2019 [facility] Simethicone Notes: (Same as: Lisa ylicon) No Longer Active 03/06/2019 [facility] Maalox Advanced Regular Strength SUSP Notes: (aluminum hydroxide-magnesium hyd-simethicone [phone]/5ml 30 ml ud YOMI) No Longer Active 03/06/2019 [facility] Morphine Notes: (Same as:MORPh ine Sulfate) No Longer Active 03/06/2019 [facility] Robitussin-AC oral syrup Notes : (Same As: Robitussin AC) No Longer Active 03/06/2019 [facility] James Stratton Notes: (Same A s: Armondon Chayito) "Do Not Crush" No Longer Active 03/06/2019 [facility] Mucinex Notes: (Same as: Guaif enesin LA, Humibid LA, Mucinex) "Do Not Crush" Take medication with plenty of water. No Longer Active 03/06/2019 [facility] Dextrose 50% Syringe 25 gm, 50 mL, Route: IVP, Drug Form: INJ, Dosing Weight 72.727, kg, PRN, PRN Blood Glucose Results, Start date: 03/06/19 18:21:00 CDT, Duration: 30 day, Stop date: 04/05/19 18:20:00 CDT No Longer Active 03/06/2019 [facility] Docusate Notes: (Same as: Cola ce) (Do Not Crush) No Longer Active 03/06/2019 [facility] Glucagon 1 mg, Route: IM, Drug form: PDR/INJ, PRN, Dosing Weight 72.727, kg, PRN Blood Glucose Results, Start date: 03/06/19 18:21:00 CDT, Duration: 30 day, Stop date: 04/05/19 18:20:00 CDT No Longer Active 03/06/2019 [facility] Bisacodyl Notes: (Same As: Dul colax, Bisco-Lax) No Longer Active 03/06/2019 [facility] POLYETHYLENE GLYCOL 3350 Notes : Dissolve in 8 oz of water or juice. (Same as: Miralax) No Longer Active 03/06/2019 [facility] Ondansetron Notes: (Same as: Douglas lewis) MEDICATION WASTE Product Size: 4 mg Product Wasted: ___ mg No Longer Active 03/06/2019 [facility] Acetaminophen Notes: Do not ex ceed 4 gm/day. (Same as: Tylenol) No Longer Active 03/06/2019 [facility] Trazodone Notes: (Same As: Lj yrel) No Longer Active 03/06/2019 [facility] Melatonin Notes: (Same as: Steffanie atonin) No Longer Active 03/06/2019 [facility] Diphenhydramine 25 mg, 1 tab, Route: PO, Drug form: TAB, Q6H, Dosing Weight 72.727, kg, PRN as needed for allergy symptoms, Start date: 03/06/19 18:21:00 CDT, Duration: 30 day, Stop date: 04/05/19 18:20:00 CDT No Longer Active 03/06/2019 [facility] Aspirin 81 MG Chewable Tablet 81 mg, Route: PO, Drug form: CHEWTAB, ONCE, Dosing Weight 72.727, kg, Priority: Routine, Start date: 03/06/19 17:17:00 CDT, Stop date: 03/06/19 17:17:00 CDT Inactive 03/06/2019 [facility] normal saline 0.9% IV 1,000 mL 1,000 mL, Rate: 50 ml/hr, Infuse over: 20 hr, Route: IV, Dosing Weight 71.477 kg, Total Volume: 1,000, Priority: STAT, Start date: 03/06/19 17:17:00 CDT, Duration: 5 day, Stop date: 03/11/19 17:17:00 CDT, 1.8, m2 No Longer Active 03/06/2019 [facility] Hydrochlorothiazide 25 MG / valsartan 16 0 MG Oral Tablet 1 tab, PO, Daily, 0 Refill(s) Active 03/06/2019 [facility] lansoprazole 30 mg oral delayed release capsule 30 mg = 1 cap, PO, BID, 0 Refill(s) Active 03/06/2019 [facility] Potassium Chloride Notes: Infu se at a rate of 10 mEq/hr. (Same as: KCL) Inactive 03/06/2019 [facility] Heparin - one time bolus for ACS 3,600 unit, 3.6 mL, Route: IVP, Drug form: INJ, ONCE, Dosing Weight 72.727, kg, Priority: STAT, Start date: 03/06/19 16:23:00 CDT, Stop date: 03/06/19 16:23:00 CDT Inactive 03/06/2019 [facility] Heparin 60 unit/kg Bolus (Heparin Dosing Weight) Route: IVP, PRN, 3,600 unit, 3.6 mL, Drug form: INJ, PRN, Heparin Protocol, Start date: 03/06/19 16:23:00 CDT Stop date: 04/05/19 16:22:00 CDT, 30 day No Longer Active 03/06/2019 [facility] Heparin 30 unit/kg Bolus (Heparin Dosing Weight) Route: IVP, PRN, 1,800 unit, 1.8 mL, Drug form: INJ, PRN, Heparin Protocol, Start date: 03/06/19 16:23:00 CDT Stop date: 04/05/19 16:22:00 CDT, 30 day No Longer Active 03/06/2019 [facility] heparin additive 25,000 unit [12 unit/kg /hr] + Premix Diluent Dextrose 5% 500 mL 500 mL, Rate: 14.53 ml/hr, Infuse over: 34.4 hr, Route: IV, Dosing Weight 60.53 kg, Total Volume: 500 mL, Start date: 03/06/19 16:23:00 CDT, Duration: 30 day, Stop date: 04/05/19 16:22:00 CDT, 1.66, m2 No Longer Active 03/06/2019 [facility] Aspirin Notes: Take with food. Inactive 03/06/2019 [facility] Saline Flush 0.9% Notes: (Same as: BD Posiflush) No Longer Active 03/06/2019 [facility] potassium chloride 10 mEq oral capsule, extended release 10 mEq = 1 cap, PO, BID, # 14 cap, 0 Refill(s) Active 02/05/2018 [facility] Docusate Sodium 100 MG Oral Capsule [Colace] 100 mg = 1 cap, PO, BID, PRN as needed for constipation, # 28 cap, 0 Refill(s) Active 02/05/2018 [facility] Lactulose 667 MG/ML Oral Solution 10 gm = 15 mL, PO, BID, PRN as needed for constipation, X 7 day, # 300 mL, 0 Refill(s) No Longer Active 02/05/2018 [facility] Potassium Chloride 1.33 MEQ/ML Oral Solution Notes: (Same as: Potassium Chloride) Inactive 02/05/2018 [facility] Potassium Chloride Notes: MUST be Diluted before use (Same as: KCl) MEDICATION WASTE Product Size: 40 mEq Product Wasted: ___ mEq Inactive 02/04/2018 [facility] Potassium Chloride Notes: (Stef e as: K-Dur 20) "Do Not Crush" With food and full glass of water Inactive 02/04/2018 [facility] pantoprazole Notes: Tablet baltazar uld not be chewed or crushed. (Same as: Protonix) N o Longer Active 02/04/2018 [facility] Sodium Chloride 0.9% IV 1,000 mL 1,000 mL, Rate: 25 ml/hr, Infuse over: 40 hr, Route: IV, Dosing Weight 60 kg, Total Volume: 1,000, Start date: 02/03/18 13:07:00 CDT, Duration: 1 day, Stop date: 02/04/18 13:06:00 CDT, 1.62, m2 Inactive 02/03/2018 [facility] sodium phosphate 15 mmol, 5 mL , Route: IVPB, PRN, Dosing Weight 60, kg, PRN Abnormal Lab Result, For NON-ICU Patients Only., Start date: 02/03/18 11:56:00 CDT, Duration: 30 day, Stop date: 03/05/18 11:55:00 CDT No Longer Active 02/03/2018 [facility] potassium phosphate Notes: (Sa me as: K Phosphate.) 1 mMol phoshate has 1.47 mEq potassium Infuse over 4 hours No Longer Active 02/03/2018 [facility] Magnesium Oxide Notes: (Same a s: Mag-Ox 400) Magnesium oxide [id number] elemental magnesium Dose=____mg magnesium oxide (___mg elemental magnesium) No Longer Active 02/03/2018 [facility] Magnesium Sulfate Notes: WASTE : F/P - Sink; E - Municipal Trash Bin No Longer Active 02/03/2018 [facility] Calcium Gluconate Notes: WASTE : F/P - Sink; E - Municipal Trash Bin No Longer Active 02/03/2018 [facility] Potassium Chloride Notes: MUST be Diluted before use (Same as: KCl) MEDICATION WASTE Product Size: 40 mEq Product Wasted: ___ mEq No Longer Active 02/03/2018 [facility] potassium phosphate-sodium phosphate 250 mg-280 mg-160 mg oral powder for reconstitution Notes: (Same as: Phos-NaK) Each 1.5 gm pkt has 250mg phosphorous. Mix w/2.5oz water and stir. No Longer Active 02/03/2018 [facility] Potassium Chloride Notes: MUST be Diluted before use (Same as: KCl) MEDICATION WASTE Product Size: 40 mEq Product Wasted: ___ mEq Inactive 02/03/2018 [facility] Risperidone Notes: (Same as: R isperdal) No Longer Active 02/03/2018 [facility] valsartan Notes: Same as Diovan No Longer Active 02/03/2018 [facility] amLODIPine Notes: (Same as: No rvasc) No Longer Active 02/03/2018 [facility] Amlodipine 5 MG / valsartan 160 MG Oral Tablet [Exforge 5/160] 1 tab, Route: PO, Drug Form: TAB, Dosing Weight 60, kg, Daily, Start date: 02/03/18 9:00:00 CDT, Duration: 30 day, Stop date: 03/04/18 9:00:00 CDT No Longer Active 02/03/2018 [facility] Potassium Chloride Notes: (Stef e as: K-Dur 20) "Do Not Crush" With food and full glass of water Inactive 02/03/2018 [facility] magnesium citrate 58.2 MG/ML Oral Solution Notes: (Same as: Citrate of Magnesia) Concentration: 1.745 gm / 30 mL Inactive 02/03/2018 [facility] Sertraline Notes: (Same as: Z oloft) No Longer Active 02/03/2018 [facility] Memantine Notes: (Same As: Nam enda) No Longer Active 02/03/2018 [facility] atorvastatin Notes: (Same As: Lipitor) No Longer Active 02/03/2018 [facility] Alprazolam 0.5 MG Oral Tablet Notes: With food or milk (Same as: Xanax) No Longer Active 02/02/2018 [facility] Ibuprofen Notes: (Same as: Adv il) Give with food. No Longer Active 02/02/2018 [facility] Golytely Notes: (polyethylene glycol electrolyte solution 4 Liter bottle) (Same as: Golytely, Colyte) Inactive 02/02/2018 [facility] Potassium Chloride Notes: MUST be Diluted before use (Same as: KCl) MEDICATION WASTE Product Size: 40 mEq Product Wasted: ___ mEq Inactive 02/02/2018 [facility] potassium chloride 20 mEq oral tablet, extended releas e Notes: (Same as: K-Dur 20) "Do Not Crush" With food and full glass of water Inactive 02/02/2018 [facility] hydrocortisone acetate 25 MG/ML / Pramox ine hydrochloride 10 MG/ML Topical Lotion [Analpram HC] Notes: (Same as: ProctoCream-HC, Analpram-HC) No Longer Active 02/02/2018 [facility] Docusate Sodium 100 MG Oral Capsule [Colace] Notes: (Same as: Colace) (Do Not Crush) No Longer Active 02/02/2018 [facility] Lactulose 667 MG/ML Oral Solution Notes: (Same as:Chronulac) No Longer Active 02/02/2018 [facility] Flagyl Notes: (Same as: Flagyl ) Avoid alcohol. No Longer Active 02/02/2018 [facility] Seroquel Notes: (Same as: SERO quel) No Longer Active 02/02/2018 [facility] Dulcolax Laxative Notes: (Same As: Dulcolax, Bisco-Lax) Inactive 02/02/2018 [facility] magnesium citrate 58.2 MG/ML Oral Solution Notes: (Same as: Citrate of Magnesia) Concentration: 1.745 gm / 30 mL Inactive 02/02/2018 [facility] memantine 10 mg oral tablet 10 mg = 1 tab, PO, Q12H, 0 Refill(s) Active 02/02/2018 [facility] Hemorrhoidal 0.25% rectal suppository Daily, PRN Hemorrhoids, 0 Refill(s) Activ e 02/02/2018 [facility] hydrocortisone acetate 25 MG/ML / Pramox ine hydrochloride 10 MG/ML Topical Lotion [Analpram HC] 1 appl, NH, TID, PRN Pain Score 1- 5, # 1 kit, 0 Refill(s) Active 02/02/2018 [facility] Alprazolam 0.5 MG Oral Tablet 0.5 mg = 1 tab, PO, Q5PM, 0 Refill(s) Active 02/02/2018 [facility] atorvastatin 10 mg oral tablet 10 mg = 1 tab, PO, Bedtime, # 30 tab, 0 Refill(s) Active 02/02/2018 [facility] lansoprazole 30 mg oral delayed release capsule 30 mg = 1 cap, PO, BID, 0 Refill(s) No Longer Active 02/02/2018 [facility] lansoprazole 30 mg, PO, Daily, # 15 cap, 0 Refill(s) Active 02/02/2018 [facility] Acetaminophen 500 mg, PO, Q6H, PRN Pain Score 1-5, 0 Refill(s) Active 02/02/2018 [facility] zolpidem 10 mg oral tablet 10 mg = 1 tab, PO, Bedtime, PRN for sleep, # 14 tab, 0 Refill(s) Active 02/02/2018 [facility] sertraline 25 mg oral tablet 2 5 mg = 1 tab, PO, Bedtime, 0 Refill(s) Active 02/02/2018 [facility] risperiDONE 0.25 mg oral tablet 0.25 mg = 1 tab, PO, Daily, 0 Refill(s) Active 02/02/2018 [facility] Amlodipine 5 MG / valsartan 160 MG Oral Tablet [Exforge 5/160] 1 tab, PO, Daily, 0 Refill(s) Active 02/02/2018 [facility] Miralax 17 gm, PO, BID, 0 Refi ll(s) Active 02/02/2018 [facility] Ibuprofen 200 mg, PO, Daily, P RN Pain Score 6-10, 0 Refill(s) No Longer Active 02/02/2018 [facility] Cranberry preparation 250 MG Chewable Ta blet [Azo-Cranberry] 1 tab, PO, Daily, 0 Refill(s) Active 02/02/2018 [facility] Sodium Chloride 0.9% IV 1,000 mL 1,000 mL, Rate: 60 ml/hr, Infuse over: 16.7 hr, Route: IV, Dosing Weight 63.636 kg, Total Volume: 1,000, Start date: 02/01/18 17:00:00 CDT, Duration: 30 day, Stop date: 03/03/18 16:59:00 CDT, 1.68, m2 No Longer Active 02/01/2018 [facility] Saline Flush 0.9% Notes: (Same as: BD Posiflush) No Longer Active 02/01/2018 [facility] Ondansetron Notes: (Same as: Douglas lewis) MEDICATION WASTE Product Size: 4 mg Product Wasted: ___ mg No Longer Active 02/01/2018 [facility] Flagyl Notes: (Same as: [place] ) Avoid alcohol. Inactive 02/01/2018 [facility] Ciprofloxacin Notes: Do not re frigerate Inactive 02/01/2018 [facility] Morphine 4 mg, Route: IVP, ONC E, Dosing Weight 63.636, kg, Priority: STAT, Start date: 02/01/18 11:53:00 CDT, Stop date: 02/01/18 11:53:00 CDT Inactive 02/01/2018 [facility] Ondansetron 4 mg, Route: IVP, ONCE, Dosing Weight 63.636, kg, Priority: STAT, Start date: 02/01/18 11:53:00 CDT, Stop date: 02/01/18 11:53:00 CDT Inactive 02/01/2018 [facility] Saline Flush 0.9% Notes: (Same as: BD Posiflush) No Longer Active 02/01/2018 [facility] Sodium Chloride 0.9% (Bolus) IV 1,000 mL, Infuse Over: 1 hr, Route: IV, ONCE, Priority: STAT, Dosing Weight 63.636 kg, Start date: 02/01/18 11:53:00 CDT, Stop date: 02/01/18 11:53:00 CDT Inactive 02/01/2018 [facility] Allergies, Adverse Reactions, Alerts Substance Category Reaction Severity Reaction type Status Date Reported Comments Source zitromax Assertion Drug allergy Active [facility] macrobyt Assertion Drug allergy Active [facility] penicillins Assertion Drug allergy Active [facility] sulfa drugs Assertion Drug allergy Active [facility] ibuprofen Assertion Drug allergy Active [facility] iodine containing compounds As sertion Drug aller gy Active [facility] Immunizations No Data Provided for This [...] should be multiplied by the estimated BMI. [facility] CHEM PANEL Chloride Lvl 108 95 - 109 03/08/2019 [facility] CHEM PANEL Sodium Lvl 137 135 - 145 03/08/2019 [facility] CHEM PANEL Potassium Lvl 4.3 3.5 - 5.1 03/08/2019 [facility] CHEM PANEL CO2 22 24 - 32 03/08/2019 [facility] CHEM PANEL AGAP 11.3 10.0 - 20.0 03/08/2019 [facility] CHEM PANEL Calcium Lvl 9.1 8.5 - 10.5 03/08/2019 [facility] CHEM PANEL Creatinine Lvl 0.83 0.50 - 1.40 03/08/2019 [facility] CHEM PANEL BUN 9 7 - 22 03/08/2019 [facility] CHEM PANEL Glucose Lvl 84 70 - 99 03/08/2019 [facility] HEMATOLOGY WBC 6.5 3.7 - 10.4 03/08/2019 [facility] HEMATOLOGY Platelet 219 133 - 450 03/08/2019 [facility] HEMATOLOGY RDW 13.5 11.5 - 14.5 03/08/2019 [facility] HEMATOLOGY MCHC 33.0 32.0 - 36.0 03/08/2019 [facility] HEMATOLOGY RBC 4.27 4.20 - 5.40 03/08/2019 [facility] Hgb 12.6 12.0 - 16.0 03/08/2019 [facility] MPV 8.3 7.4 - 10.4 03/08/2019 [facility] Hct 38.1 36.0 - 48.0 03/08/2019 [facility] MCH 29.5 27.0 - 31.0 03/08/2019 [facility] HEMATOLOGY MCV 89.4 80.0 - 98.0 03/08/2019 [facility] CHEM PANEL Magnesium Lvl 1.9 1.8 - 2.4 03/07/2019 [facility] CHEM PANEL Glucose Lvl 92 70 - 99 03/07/2019 [facility] CHEM PANEL Potassium Lvl 3.1 3.5 - 5.1 03/07/2019 [facility] CHEM PANEL Creatinine Lvl 0.78 0.50 - 1.40 03/07/2019 [facility] CHEM PANEL Chloride Lvl 99 95 - 109 03/07/2019 [facility] CHEM PANEL Sodium Lvl 133 135 - 145 03/07/2019 [facility] CHEM PANEL BUN 6 7 - 22 03/07/2019 [facility] CHEM PANEL eGFR 69 03/07/2019 Result [...] should be multiplied by the estimated BMI. [facility] CHEM PANEL CO2 22 24 - 32 03/07/2019 [facility] CHEM PANEL AGAP 15.1 10.0 - 20.0 03/07/2019 [facility] CHEM PANEL Calcium Lvl 8.9 8.5 - 10.5 03/07/2019 [facility] HEMATOLOGY PTT 69.8 22.9 - 35.8 03/07/2019 [facility] HEMATOLOGY MPV 8.8 7.4 - 10.4 03/07/2019 [facility] HEMATOLOGY WBC 8.1 3.7 - 10.4 03/07/2019 [facility] HEMATOLOGY MCHC 33.1 32.0 - 36.0 03/07/2019 [facility] HEMATOLOGY RBC 4.70 4.20 - 5.40 03/07/2019 [facility] HEMATOLOGY Hgb 14.0 12.0 - 16.0 03/07/2019 [facility] HEMATOLOGY Hct 42.1 36.0 - 48.0 03/07/2019 [facility] MCH 29.7 27.0 - 31.0 03/07/2019 [facility] HEMATOLOGY MCV 89.5 80.0 - 98.0 03/07/2019 [facility] HEMATOLOGY RDW 13.3 11.5 - 14.5 03/07/2019 [facility] Platelet 222 133 - 450 03/07/2019 [facility] LIPIDS CHD Risk 3.03 3.90 - 5.80 03/07/2019 [facility] LIPIDS Chol 118 <=199 mg/dL 03/07/2019 [facility] LIPIDS VLDL 30 03/07/2019 [facility] LIPIDS HDL 39 >=61 mg/dL 03/07/2019 [facility] LIPIDS LDL (Calculated) 49 <=99 mg/dL 03/07/2019 [facility] LIPIDS Trig 151 <=149 mg/dL 03/07/2019 [facility] SPECIAL CHEMISTRY Hgb A1C 6.5 <=5.6 % 03/07/2019 [facility] CARDIAC ENZYMES Troponin-I 0.85 0.00 - 0.40 03/07/2019 Result Comment: Critical Result(s) de jesus d to FLETCHER BRAGG at 03/07/2019 01:27 by APPLE. Read back OK. [facility] HEMATOLOGY PTT 63.8 22.9 - 35.8 03/07/2019 [facility] CARDIAC ENZYMES Troponin-I 1.10 0.00 - 0.40 03/07/2019 Result Comment: Critical Result(s) de jesus d to bowen hernandez at 03/06/2019 20:29 by neeraj. Read back OK. [facility] HEMATOLOGY RBC 4.44 4.20 - 5.40 03/06/2019 [facility] HEMATOLOGY WBC 10.7 3.7 - 10.4 03/06/2019 [facility] HEMATOLOGY Platelet 245 133 - 450 03/06/2019 [facility] MPV 8.3 7.4 - 10.4 03/06/2019 [facility] MCH 29.7 27.0 - 31.0 03/06/2019 [facility] MCHC 34.0 32.0 - 36.0 03/06/2019 [facility] HEMATOLOGY MCV 87.5 80.0 - 98.0 03/06/2019 [facility] HEMATOLOGY RDW 13.4 11.5 - 14.5 03/06/2019 [facility] HEMATOLOGY Hgb 13.2 12.0 - 16.0 03/06/2019 [facility] HEMATOLOGY Hct 38.9 36.0 - 48.0 03/06/2019 [facility] HEMATOLOGY PTT 33.8 22.9 - 35.8 03/06/2019 [facility] HEMATOLOGY INR 0.96 0.85 - 1.17 03/06/2019 [facility] HEMATOLOGY PT 12.6 12.0 - 14.7 03/06/2019 [facility] HEMATOLOGY Basophils # 0.1 0.0 - 0.2 03/06/2019 [facility] HEMATOLOGY Basophils 0.5 0.0 - 1.0 03/06/2019 [facility] HEMATOLOGY Neutrophils # 7.9 1.5 - 8.1 03/06/2019 [facility] HEMATOLOGY Lymphocytes # 2.1 1.0 - 5.5 03/06/2019 [facility] HEMATOLOGY Monocytes # 0.6 0.0 - 0.8 03/06/2019 [facility] HEMATOLOGY Eosinophils # 0.1 0.0 - 0.5 03/06/2019 [facility] HEMATOLOGY Lymphocytes 19.6 20.0 - 40.0 03/06/2019 [facility] HEMATOLOGY Monocytes 5.4 2.0 - 12.0 03/06/2019 [facility] HEMATOLOGY Eosinophils 0.8 0.0 - 4.0 03/06/2019 [facility] HEMATOLOGY Segs 73.7 45.0 - 75.0 03/06/2019 [facility] CARDIAC ENZYMES BNP 48 <=100 pg/mL 03/06/2019 [facility] URINE AND STOOL UA Bacteria None Seen (03/06/19 3:02 PM) None Seen 03/06/2019 [facility] URINE AND STOOL UA WBC 1 0 - 5 03/06/2019 [facility] URINE AND STOOL UA RBC <1 0 - 2 03/06/2019 [facility] URINE AND STOOL UA Leuk Est Negative (03/06/19 3:02 PM) Negative 03/06/2019 [facility] URINE AND STOOL UA Urobilinogen <=1.0 mg/dL 0.1 - 1.0 03/06/2019 [facility] URINE AND STOOL UA Nitrite Negative (03/06/19 3:02 PM) Negative 03/06/2019 [facility] URINE AND STOOL UA Sq Epi Occasional /LPF Few /LPF 03/06/2019 [facility] URINE AND STOOL UA Blood Negative (03/06/19 3:02 PM) Negative 03/06/2019 [facility] URINE AND STOOL UA Ketones Negative *NA* (03/06/19 3:02 PM) Negative 03/06/2019 [facility] URINE AND STOOL UA Bili Negative *NA* (03/06/19 3:02 PM) Negative 03/06/2019 [facility] URINE AND STOOL UA Glucose Negative *NA* (03/06/19 3:02 PM) Negative 03/06/2019 [facility] URINE AND STOOL UA Spec Grav 1.006 <=1.030 03/06/2019 [facility] URINE AND STOOL UA pH 7.0 5.0 - 8.0 03/06/2019 [facility] URINE AND STOOL UA Protein Negative (03/06/19 3:02 PM) Negative 03/06/2019 [facility] URINE AND STOOL UA Turbidity Clear (03/06/19 3:02 PM) Clear 03/06/2019 [facility] URINE AND STOOL UA Color Ltyellow 03/06/2019 [facility] CARDIAC ENZYMES Troponin-I 1.00 0.00 - 0.40 03/06/2019 Result Comment: Critical Result(s) neal WILLIS at 03/06/2019 15:42 by PJ. Read back OK. [facility] CHEM PANEL Bili Total 0.7 0.2 - 1.3 03/06/2019 [facility] CHEM PANEL Sodium Lvl 125 135 - 145 03/06/2019 [facility] CHEM PANEL Creatinine Lvl 0.87 0.50 - 1.40 03/06/2019 [facility] CHEM PANEL Potassium Lvl 2.7 3.5 - 5.1 03/06/2019 Result Comment: Critical Result(s) neal willingham to Rod LANDJR at 03/06/2019 15:42 by NEERAJ. Read back OK. [facility] CHEM PANEL Calcium Lvl 9.7 8.5 - 10.5 03/06/2019 [facility] CHEM PANEL AGAP 12.7 10.0 - 20.0 03/06/2019 [facility] CHEM PANEL Chloride Lvl 89 95 - 109 03/06/2019 [facility] CHEM PANEL CO2 26 24 - 32 03/06/2019 [facility] CHEM PANEL Total Protein 8.2 6.4 - 8.4 03/06/2019 [facility] CHEM PANEL Globulin 3.9 2.7 - 4.2 03/06/2019 [facility] CHEM PANEL Albumin Lvl 4.3 3.5 - 5.0 03/06/2019 [facility] CHEM PANEL eGFR 61 03/06/2019 Result [...] should be multiplied by the estimated BMI. [facility] CHEM PANEL A/G Ratio 1.1 0.7 - 1.6 03/06/2019 [facility] CHEM PANEL Alk Phos 104 39 - 136 03/06/2019 [facility] CHEM PANEL AST 47 0 - 37 03/06/2019 [facility] CHEM PANEL ALT 55 0 - 65 03/06/2019 [facility] CHEM PANEL B/C Ratio 8 6 - 25 03/06/2019 [facility] CHEM PANEL Glucose Lvl 103 70 - 99 03/06/2019 [facility] CHEM PANEL BUN 7 7 - 22 03/06/2019 [facility] HEMATOLOGY Segs 73.9 45.0 - 75.0 03/06/2019 [facility] HEMATOLOGY Monocytes 4.4 2.0 - 12.0 03/06/2019 [facility] HEMATOLOGY Lymphocytes 20.2 20.0 - 40.0 03/06/2019 [facility] HEMATOLOGY Basophils 0.5 0.0 - 1.0 03/06/2019 [facility] HEMATOLOGY Monocytes # 0.5 0.0 - 0.8 03/06/2019 [facility] HEMATOLOGY Lymphocytes # 2.3 1.0 - 5.5 03/06/2019 [facility] HEMATOLOGY Eosinophils # 0.1 0.0 - 0.5 03/06/2019 [facility] HEMATOLOGY Neutrophils # 8.4 1.5 - 8.1 03/06/2019 [facility] HEMATOLOGY Eosinophils 1.0 0.0 - 4.0 03/06/2019 [facility] HEMATOLOGY Basophils # 0.1 0.0 - 0.2 03/06/2019 [facility] ELECTROLYTES AGAP 12.0 10.0 - 20.0 02/05/2018 [facility] ELECTROLYTES eGFR 82 02/05/2018 Result Comment: [...] should be multiplied by the estimated BMI. [facility] ELECTROLYTES Calcium Lvl 8.9 8.5 - 10.5 02/05/2018 [facility] ELECTROLYTES BUN 7 7 - 22 02/05/2018 [facility] ELECTROLYTES Glucose Lvl 92 70 - 99 02/05/2018 [facility] ELECTROLYTES CO2 23 24 - 32 02/05/2018 [facility] ELECTROLYTES Creatinine Lvl 0.6 2 0.50 - 1.40 02/05/2018 [facility] ELECTROLYTES Chloride Lvl 111 95 - 109 02/05/2018 [facility] ELECTROLYTES Potassium Lvl 4.0 3.5 - 5.1 02/05/2018 [facility] ELECTROLYTES Sodium Lvl 142 135 - 145 02/05/2018 [facility] ELECTROLYTES Potassium Lvl 4.0 3.5 - 5.1 02/05/2018 [facility] HEMATOLOGY Hgb 11.3 12.0 - 16.0 02/05/2018 [facility] HEMATOLOGY WBC 7.5 3.7 - 10.4 02/05/2018 [facility] HEMATOLOGY RBC 3.80 4.20 - 5.40 02/05/2018 [facility] HEMATOLOGY Hct 33.9 36.0 - 48.0 02/05/2018 [facility] HEMATOLOGY MPV 9.3 7.4 - 10.4 02/05/2018 [facility] HEMATOLOGY Platelet 247 133 - 450 02/05/2018 [facility] HEMATOLOGY MCHC 33.4 32.0 - 36.0 02/05/2018 [facility] HEMATOLOGY MCH 29.8 27.0 - 31.0 02/05/2018 [facility] HEMATOLOGY MCV 89.2 80.0 - 98.0 02/05/2018 [facility] HEMATOLOGY RDW 14.3 11.5 - 14.5 02/05/2018 [facility] HEMATOLOGY Basophils 0.5 0.0 - 1.0 02/05/2018 [facility] HEMATOLOGY Segs-Bands # 4.8 1.5 - 8.1 02/05/2018 [facility] HEMATOLOGY Monocytes 7.8 2.0 - 12.0 02/05/2018 [facility] HEMATOLOGY Eosinophils 2.4 0.0 - 4.0 02/05/2018 [facility] HEMATOLOGY Lymphocytes 25.5 20.0 - 40.0 02/05/2018 [facility] HEMATOLOGY Segs 63.8 45.0 - 75.0 02/05/2018 [facility] HEMATOLOGY Eosinophils # 0.2 0.0 - 0.5 02/05/2018 [facility] HEMATOLOGY Monocytes # 0.6 0.0 - 0.8 02/05/2018 [facility] HEMATOLOGY Lymphocytes # 1.9 1.0 - 5.5 02/05/2018 [facility] ELECTROLYTES Potassium Lvl 3.4 3.5 - 5.1 02/04/2018 [facility] CHEM PANEL eGFR 83 02/04/2018 Result [...] should be multiplied by the estimated BMI. [facility] CHEM PANEL Calcium Lvl 7.9 8.5 - 10.5 02/04/2018 [facility] CHEM PANEL CO2 26 24 - 32 02/04/2018 [facility] CHEM PANEL Chloride Lvl 106 95 - 109 02/04/2018 [facility] CHEM PANEL AGAP 12.8 10.0 - 20.0 02/04/2018 [facility] CHEM PANEL Creatinine Lvl 0.61 0.50 - 1.40 02/04/2018 [facility] CHEM PANEL BUN 4 7 - 22 02/04/2018 [facility] CHEM PANEL Glucose Lvl 117 70 - 99 02/04/2018 [facility] CHEM PANEL Sodium Lvl 142 135 - 145 02/04/2018 [facility] CHEM PANEL eGFR 90 02/03/2018 Result [...] Alk Phos 120 39 - 136 02/03/2018 [facility] CHEM PANEL A/G Ratio 0.9 0.7 - 1.6 02/03/2018 [facility] CHEM PANEL Globulin 3.3 2.7 - 4.2 02/03/2018 [facility] CHEM PANEL ALT 33 0 - 65 02/03/2018 [facility] CHEM PANEL Albumin Lvl 3.0 3.5 - 5.0 02/03/2018 [facility] CHEM PANEL Calcium Lvl 8.5 8.5 - 10.5 02/03/2018 [facility] CHEM PANEL AGAP 14.9 10.0 - 20.0 02/03/2018 [facility] CHEM PANEL B/C Ratio 8 6 - 25 02/03/2018 [facility] CHEM PANEL Total Protein 6.3 6.4 - 8.4 02/03/2018 [facility] CHEM PANEL CO2 23 24 - 32 02/03/2018 [facility] CHEM PANEL Sodium Lvl 145 135 - 145 02/03/2018 [facility] CHEM PANEL Creatinine Lvl 0.48 0.50 - 1.40 02/03/2018 [facility] CHEM PANEL Chloride Lvl 110 95 - 109 02/03/2018 [facility] CHEM PANEL Bili Total 0.3 0.2 - 1.3 02/03/2018 [facility] HEMATOLOGY Eosinophils # 0.1 0.0 - 0.5 02/03/2018 [facility] HEMATOLOGY Monocytes 7.4 2.0 - 12.0 02/03/2018 [facility] HEMATOLOGY Lymphocytes 24.1 20.0 - 40.0 02/03/2018 [facility] HEMATOLOGY Segs 66.7 45.0 - 75.0 02/03/2018 [facility] HEMATOLOGY Basophils 0.6 0.0 - 1.0 02/03/2018 [facility] HEMATOLOGY Eosinophils 1.2 0.0 - 4.0 02/03/2018 [facility] HEMATOLOGY Monocytes # 0.5 0.0 - 0.8 02/03/2018 [facility] HEMATOLOGY Lymphocytes # 1.6 1.0 - 5.5 02/03/2018 [facility] HEMATOLOGY Segs-Bands # 4.4 1.5 - 8.1 02/03/2018 [facility] HEMATOLOGY INR 1.10 0.85 - 1.17 02/03/2018 [facility] HEMATOLOGY PTT 33.7 22.9 - 35.8 02/03/2018 [facility] HEMATOLOGY PT 14.2 12.0 - 14.7 02/03/2018 [facility] HEMATOLOGY MCV 88.7 80.0 - 98.0 02/03/2018 [facility] HEMATOLOGY Hct 32.0 36.0 - 48.0 02/03/2018 [facility] HEMATOLOGY Hgb 10.7 12.0 - 16.0 02/03/2018 [facility] HEMATOLOGY RBC 3.61 4.20 - 5.40 02/03/2018 [facility] WBC 6.7 3.7 - 10.4 02/03/2018 [facility] MCH 29.7 27.0 - 31.0 02/03/2018 [facility] MPV 9.5 7.4 - 10.4 02/03/2018 [facility] HEMATOLOGY Platelet 259 133 - 450 02/03/2018 [facility] RDW 13.9 11.5 - 14.5 02/03/2018 [facility] MCHC 33.5 32.0 - 36.0 02/03/2018 [facility] TUMOR MARKERS AFP 2.1 0.0 - 11.0 02/02/2018 [facility] TUMOR MARKERS CEA 3.6 0.0 - 3.0 02/02/2018 [facility] TUMOR MARKERS CA 19-9 20.1 0.0 - 35.0 02/02/2018 [facility] CHEM PANEL Magnesium Lvl 2.5 1.8 - 2.4 02/02/2018 [facility] CHEM PANEL Phosphorus 3.5 2.5 - 4.5 02/02/2018 [facility] HEMATOLOGY Monocytes # 0.4 0.0 - 0.8 02/02/2018 [facility] HEMATOLOGY Segs-Bands # 8.9 1.5 - 8.1 02/02/2018 [facility] HEMATOLOGY Lymphocytes # 1.3 1.0 - 5.5 02/02/2018 [facility] HEMATOLOGY Basophils 0.3 0.0 - 1.0 02/02/2018 [facility] HEMATOLOGY Lymphocytes 12.1 20.0 - 40.0 02/02/2018 [facility] HEMATOLOGY Monocytes 3.8 2.0 - 12.0 02/02/2018 [facility] HEMATOLOGY Eosinophils 0.1 0.0 - 4.0 02/02/2018 [facility] HEMATOLOGY Segs 83.7 45.0 - 75.0 02/02/2018 [facility] HEMATOLOGY RDW 13.9 11.5 - 14.5 02/02/2018 [facility] HEMATOLOGY Platelet 264 133 - 450 02/02/2018 [facility] MPV 9.4 7.4 - 10.4 02/02/2018 [facility] MCHC 33.6 32.0 - 36.0 02/02/2018 [facility] WBC 10.6 3.7 - 10.4 02/02/2018 [facility] MCH 29.7 27.0 - 31.0 02/02/2018 [facility] MCV 88.3 80.0 - 98.0 02/02/2018 [facility] Hct 32.8 36.0 - 48.0 02/02/2018 [facility] Hgb 11.0 12.0 - 16.0 02/02/2018 [facility] RBC 3.71 4.20 - 5.40 02/02/2018 [facility] CHEM PANEL Bili Indirect >0.3 0.0 - 1.0 02/02/2018 [facility] CHEM PANEL Globulin 3.6 2.7 - 4.2 02/02/2018 [facility] CHEM PANEL A/G Ratio 0.9 0.7 - 1.6 02/02/2018 [facility] CHEM PANEL Total Protein 6.7 6.4 - 8.4 02/02/2018 [facility] CHEM PANEL Alk Phos 139 39 - 136 02/02/2018 [facility] CHEM PANEL Bili Total 0.4 0.2 - 1.3 02/02/2018 [facility] CHEM PANEL Bili Direct <0.1 0.0 - 0.3 02/02/2018 [facility] CHEM PANEL AST 40 0 - 37 02/02/2018 [facility] CHEM PANEL Albumin Lvl 3.1 3.5 - 5.0 02/02/2018 [facility] CHEM PANEL ALT 38 0 - 65 02/02/2018 [facility] URINE AND STOOL Occult Bld Stl Negative (02/01/18 6:10 PM) Negative 02/01/2018 [facility] URINE AND STOOL Fecal Leukocyte None Seen (02/01/18 6:10 PM) 02/01/2018 [facility] Culture: Stool Normal Enteric Shante Isolated No Salmonella, Shigella, Or Campylobacter Isolated 02/01/2018 [facility] MOLECULAR DIAGNOSTIC C difficile DNA Negative (02/01/18 1:39 PM) Negative 02/01/2018 [facility] URINE AND STOOL UA Leuk Est Negative (02/01/18 12:19 PM) Negative 02/01/2018 [facility] URINE AND STOOL UA Nitrite Negative (02/01/18 12:19 PM) Negative 02/01/2018 [facility] URINE AND STOOL UA Urobilinogen 2.0 0.1 - 1.0 02/01/2018 [facility] URINE AND STOOL UA Blood Negative (02/01/18 12:19 PM) Negative 02/01/2018 [facility] URINE AND STOOL UA Mucus Few /LPF None Seen /LPF 02/01/2018 [facility] URINE AND STOOL UA RBC 2 0 - 2 02/01/2018 [facility] URINE AND STOOL UA WBC 3 0 - 5 02/01/2018 [facility] URINE AND STOOL UA Sq Epi Occasional /LPF Few /LPF 02/01/2018 [facility] URINE AND STOOL UA Bili Negative *NA* (02/01/18 12:19 PM) Negative 02/01/2018 [facility] URINE AND STOOL UA Ketones Negative mg/dL Negative mg/dL 02/01/[address] [facility] [address] URINE AND STOOL UA Glucose Negative mg/dL Negative mg/dL 02/01/[address] [facility] [address] URINE AND STOOL UA Protein 30 mg/dL Negative mg/dL 02/01/2018 [facility] URINE AND STOOL UA pH 6.0 5.0 - 8.0 02/01/2018 [facility] URINE AND STOOL UA Spec Grav 1.011 <=1.030 02/01/2018 [facility] URINE AND STOOL UA Turbidity Clear (02/01/18 12:19 PM) Clear 02/01/2018 [facility] URINE AND STOOL UA Color Yellow *NA* (02/01/18 12:19 PM) Yellow 02/01/2018 [facility] CARDIAC ENZYMES CK MB 2.7 0.5 - 3.6 02/01/2018 [facility] CARDIAC ENZYMES Total CK 193 12 - 191 02/01/2018 [facility] CARDIAC ENZYMES Troponin-I <0.02 0.00 - 0.40 02/01/2018 [facility] CARDIAC ENZYMES CK MB Index 1.4 0.0 - 2.5 02/01/2018 [facility] CHEM PANEL A/G Ratio 0.9 0.7 - 1.6 02/01/2018 [facility] CHEM PANEL Globulin 4.0 2.7 - 4.2 02/01/2018 [facility] CHEM PANEL B/C Ratio 11 6 - 25 02/01/2018 [facility] CHEM PANEL Alk Phos 138 39 - 136 02/01/2018 [facility] CHEM PANEL Bili Total 0.4 0.2 - 1.3 02/01/2018 [facility] CHEM PANEL Albumin Lvl 3.5 3.5 - 5.0 02/01/2018 [facility] CHEM PANEL AST 46 0 - 37 02/01/2018 [facility] CHEM PANEL ALT 41 0 - 65 02/01/2018 [facility] CHEM PANEL Total Protein 7.5 6.4 - 8.4 02/01/2018 [facility] CHEM [facility] Lipase Lvl 147 73 - 393 02/01/2018 [facility] HEMATOLOGY PTT 30.2 22.9 - 35.8 02/01/2018 [facility] HEMATOLOGY PT 12.7 12.0 - 14.7 02/01/2018 [facility] HEMATOLOGY INR 0.95 0.85 - 1.17 02/01/2018 [facility] Pathology Reports No Data Provided for This Section Diagnostic Reports Report Value Date Source Abdomen/Pelvis wo IV contrast CT STUDY: Abdomen/Pelvis wo IV contrast CT 03/06/2019 7:07 PM CDT Ordering Physician: Maria Elena Martinez MD Patient Name: TONY PIKE MR: [id number] : 1930; Age: 88 years y/o Female [...] Hepatic steatosis. 8. Cholecystectomy. SL: [id number]- 03/06/2019 [facility] Chest 1view DX EXAM: AP radiog raph of the chest, 1 image obtained INDICATION: Shortness of breath COMPARISON: 02/01/2018 chest radiographs FINDINGS: Heart, mediastinum, and pulmonary vessels are within normal limits. Mild right basilar atelectasis is present. No consolidation, pneumothorax, or pleural effusion. No acute osseous abnormalities identified. IMPRESSION: No acute cardiopulmonary findings. SL: KENDRICK 03/06/2019 [facility] Abdomen/Pelvis wo IV contrast CT Clinical [...] race and family history risk factors SL: [id number] 02/01/2018 [facility] Chest 1view DX Study: Chest 1v iew DX 02/01/2018 11:53 AM CDT Clinical Indication: -Chest pain; Comparison: Chest x-ray 02/07/2006 FINDINGS: The cardiac silhouette and pulmonary vasculature are normal for projection and degree of inspiration. No lobar consolidation, effusion, or pneumothorax. No pleural abnormalities are seen. No acute bony abnormalities. IMPRESSION: No acute intrathoracic abnormalities. SL: [id number] 02/01/2018 [facility] Consultation Notes No Data Provided for This Section Discharge Summaries No Data Provided for This Section History and Physicals No Data Provided for This Section Vital Signs Vital Sign Value Date Comments Source Respitory Rate 17 03/09/2019 [facility] Systolic (mm Hg) 127 03/09/2019 [facility] Diastolic (mm Hg) 48 03/09/2019 [facility] Heart Rate 68 03/09/2019 [facility] Temperature Oral (F) 98 F 03/09/2019 [facility] Temperature Oral (F) 98.0 F 03/09/2019 [facility] Systolic (mm Hg) 156 03/09/2019 [facility] Diastolic (mm Hg) 65 03/09/2019 [facility] Respitory Rate 18 03/09/2019 [facility] Heart Rate 63 03/09/2019 [facility] Systolic (mm Hg) 132 03/09/2019 [facility] Diastolic (mm Hg) 53 03/09/2019 [facility] Respitory Rate 18 03/09/2019 [facility] Heart Rate 65 03/09/2019 [facility] Temperature Oral (F) 97.8 F 03/09/2019 [facility] Weight 71.477 03/07/2019 [facility] Weight 72.727 03/06/2019 [facility] BMI Calculated 28.4 03/06/2019 [facility] Height 160.02 cm 03/06/2019 [facility] BMI Calculated 30.29 03/06/2019 [facility] Weight 72.727 03/06/2019 [facility] Height 154.94 cm 03/06/2019 [facility] Heart Rate 77 03/06/2019 [facility] Systolic (mm Hg) 141 03/06/2019 [facility] Diastolic (mm Hg) 84 03/06/2019 [facility] Height 152.4 cm 12/24/2018 [facility] Weight 72.727 12/24/2018 [facility] BMI Calculated 31.31 12/24/2018 [facility] Heart Rate 97 02/05/2018 [facility] Temperature Oral (F) 97.4 F 02/05/2018 [facility] Respitory Rate 18 02/05/2018 [facility] Systolic (mm Hg) 134 02/05/2018 [facility] Diastolic (mm Hg) 83 02/05/2018 [facility] Heart Rate 99 02/05/2018 [facility] Temperature Oral (F) 98.3 F 02/05/2018 [facility] Systolic (mm Hg) 128 02/05/2018 [facility] Diastolic (mm Hg) 75 02/05/2018 [facility] Respitory Rate 18 02/05/2018 [facility] Heart Rate 86 02/05/2018 [facility] Systolic (mm Hg) 131 02/05/2018 [facility] Diastolic (mm Hg) 67 02/05/2018 [facility] Temperature Oral (F) 98.3 F 02/05/2018 [facility] Respitory Rate 18 02/04/2018 [facility] BMI Calculated 25.83 02/01/2018 [facility] Weight 60 0 02/01/2018 [facility] Height 152.4 cm 02/01/2018 [facility] BMI Calculated 26.51 02/01/2018 [facility] Weight 63.636 02/01/2018 [facility] Height 154.94 cm 02/01/2018 [facility] Encounters Location Location Details Encounter Type Encounter Number Reason For Visit Attending Provider ADM Date DC Date Status Source Outpatient [id number] DWIGHT DAVIS 02/01/2018 [facility] Colorectal Surgery [facility] Outpatient [id number] Rosalina Zapien 02/01/2018 02/02/2018 [facility] Inpatient [id number] Zi Goldstein 02/01/2018 02/05/2018 [facility] Outpatient [id number] Fab Rodriguez 12/24/2018 12/25/2018 [facility] Outpatient [id number] Hector Finley 03/06/2019 [facility] [place] Outpatient [id number] Hector Finley 03/06/2019 03/07/2019 [facility] Inpatient [id number] Maria Elena Martinez 03/06/2019 03/09/2019 [facility] Procedures Procedure Code Date Perfomer Comments Source Repair of cystocele [id number] 09/04/2005 [facility] Sling procedure of bladder neck [id number] 09/04/2005 [facility] Assessment and Plan Assessment and Plan Date [...] mg rect SUPP 10 mg 1 supp, NH, Daily Dextrose 50% 50 ml INJ syringe [...] critical care time on this case 03/09/2019 [facility] Extracted from:Title: GI Author: Sujata Paz NP Date: 02/05/18 Progress Note - Daily [facility] Completed: , FEB 05, 2018, 19:25 by Sujata Paz NP RM: 117 - 1P, SE C1B TONY PIKE 87y (: 1930) F Attending: Zi Goldstein MD Service: Internal Medicine Reason for Admission: ACUTE DIARRHEA, GENERALIZED WEAKNESS Working DRG: Esophagitis, gastroent and misc digest disorders w/o [facility] Code status: Full Code [Ordered] Current diet: [...] 1.9 Monocytes # 0.6 Eosinophils # 0.2 Crouch still necessary (Yes/No): Line still necessary (Yes/No): [...] needed as an antiemetic Prognosis guarded 02/05/2018 [facility] Plan of Care No Data Provided [...] Cessation Counseling No entered on: 03/06/19 03/06/2019 [facility] Family History No Data Provided for This Section Advance Directives No Data Provided for This Section Functional Status No Data Provided for This Section
[2020-07-24 17:21] LABS: ALBUMIN 4.5 g/dL (3.5-5.0); ALBUMIN/GLOBULIN RATIO 1.7 (0.8-2.0); ANION GAP 21.6 mmol/L (8-16); CALCIUM 9.3 mg/dL (8.4-10.2); CREATININE, SERUM 1.21 mg/dL (0.57-1.11); POTASSIUM 3.6 mmol/L (3.5-5.1)
[2020-07-24] MEDS ORDERED: ALPRAZOLAM0.5 MG (17:30)
[2020-07-24] MEDS ORDERED: RISPERIDONE0.25 MG (17:30)
[2020-07-24] MEDS ORDERED: LANSOPRAZOLE30 MG (17:30)
[2020-07-24] MEDS ORDERED: SUCRALFATE1 GM (17:30)
[2020-07-24] MEDS ORDERED: ZOLPIDEM (17:30)
[2020-07-24] MEDS ORDERED: LOSARTAN POTASS50 MG (17:30)
[2020-07-24] MEDS ORDERED: CLOPIDOGREL75 MG (17:30)
[2020-07-24] MEDS ORDERED: LOPRESSOR25 MG (17:30)
[2020-07-24] MEDS ORDERED: ATORVASTATIN CA10 MG (17:30)
[2020-07-24] MEDS ORDERED: MEMANTINE HCL10 MG (17:30)
[2020-07-24] MEDS ORDERED: SERTRALINE HCL25 MG (17:30)
--- NOTE | 2020-07-24 17:33 | NUR ---
called [employer] to get approval for daughter to stay to be a sitter so pt wont fall.
--- NOTE | 2020-07-24 18:32 | NUR ---
CALLED [phone], SPOKE TO ANGÉLICA, AT [facility] FOR DR. MICHAEL HAQUE MD REGARDING A ROUTINE CONSULT FOR PATIENT'S RIGHT SHOULDER FRACTURE.
[2020-07-24 19:57] VITALS: BP 146/76
[2020-07-24 20:00] VITALS: BP 146/76
[2020-07-24] MEDS ORDERED: ALPRAZOLAM 0.5 MG TAB PO SCH ×2 (21:00→21:23)
[2020-07-24] MEDS: SERTRALINE HCL 50 MG TAB PO SCH (22:21)
[2020-07-24] MEDS: RISPERIDONE 0.5 MG TAB PO SCH (22:21)
[2020-07-24] MEDS: METOPROLOL TARTRATE 25 MG TAB PO SCH (22:22)
[2020-07-24] MEDS: ZOLPIDEM TARTRATE 5 MG TAB PO PRN (22:23)
[2020-07-25] VITALS (7 sets, daily range): BP systolic 126–152; BP diastolic 59–69
[2020-07-25] MEDS: ALPRAZOLAM 0.5 MG TAB PO SCH (01:35)
[2020-07-25] MEDS: RISPERIDONE 0.5 MG TAB PO SCH (09:09)
[2020-07-25] MEDS: SERTRALINE HCL 50 MG TAB PO SCH (09:09)
[2020-07-25] MEDS: METOPROLOL TARTRATE 25 MG TAB PO SCH ×2 (09:09→16:55)
--- NOTE | 2020-07-25 10:12 | NUR ---
CALL TO [facility] Abhishek OWENS/Lala CORONA.
--- NOTE | 2020-07-25 10:30 | NUR ---
SPOKE TO DR. LA, STATED DR. Hermann RODRIGUEZ WILL SEE PT TODAY.
--- NOTE | 2020-07-25 11:20 | NUR ---
DR. Norma CHENG HERE TO SEE PT.
[2020-07-25] MEDS: ONDANSETRON HCL INJ 2MG/ML 2ML 2 MG/ML VIAL IV PRN ×2 (12:52→18:43)
[2020-07-25] MEDS: MORPHINE SULFATE INJ 4 MG/ML INJ 1ML IV PRN ×2 (12:53→18:43)
--- NOTE | 2020-07-25 17:14 | NUR ---
Dr. Ruggiero at bedside to see patient. Ordered for complete view of right shoulder x-ray and sling. Order read back and verified. Entered as ordered.
--- NOTE | 2020-07-25 17:55 | Diagnostic Imaging Report ---
X-ray right shoulder 3 views. HISTORY: Shoulder Pain. COMPARISON: X-ray on 07/24/2020. FINDINGS: Bones/joints: There is redemonstration of comminuted and impacted fracture of the humerus head and neck junction. No evidence of dislocation. Additionally, there is comminuted fracture and displaced of the humeral shaft. Soft tissues: There is diffuse soft tissue swelling around fracture. Others: The imaged lungs demonstrate low lung volume with bronchovascular crowding. IMPRESSION: 1. Comminuted and impacted fracture of the humeral head and neck. No dislocation. 2. Comminuted and displaced fracture of the humeral shaft. Signed by: Nereida Newman MD on 07/25/2020 5:52 PM
--- NOTE | 2020-07-25 18:22 | NUR ---
straight cath for clean ua culture, sent to lab.
[2020-07-25] MEDS ORDERED: SODIUM CHLORIDE 0.9% 250ML 250 ML ONE (18:34)
[2020-07-25] MEDS: CEFTRIAXONE SOD 1 GM/NS 50 ML 50 ML IV SCH (18:43)
--- NOTE | 2020-07-25 19:15 | NUR ---
PATIENT RECEIVED AT BEDSIDE REPORT. PATIENT IS RESTING IN BED, AAOX1. RESP EVEN AND UNLABORED. NO ACUTE DISTRESS NOTED. TELE IN PLACE. RIGHT SHOULDER BRUISE AND SWOLLEN NOTED. DAUGHTER AT BED SIDE. CALL LIGHT WITHIN REACH. INSTRUCT PATIENT TO CALL FOR ANY ASSISTANCE. BED LOW/LOCKED. SIDE RAIL UP X2. BED ALARM IS ON. CONTINUE TO MONITOR CLOSELY
--- NOTE | 2020-07-25 19:28 | NUR ---
REPORT GIVEN TO ONCOMING NURSE, WALKING ROUNDS COMPLETE.
--- NOTE | 2020-07-25 19:45 | NUR ---
ATTACHED ARM SLING TO RIGHT ARM PER MD ORDER. ELEVATED RIGHT ARM ON PILLOW. REPOSITION PATIENT.
[2020-07-25] MEDS: ZOLPIDEM TARTRATE 5 MG TAB PO PRN (20:03)
[2020-07-25] MEDS: ATORVASTATIN 10 MG TAB PO SCH (20:03)
--- NOTE | 2020-07-25 21:52 | Consultation ---
DATE OF CONSULTATION: 07/25/2020 CHIEF COMPLAINT: Right shoulder pain. HISTORY OF PRESENT ILLNESS: Kate Carrera is an 89-year-old female with a history of right shoulder pain after she had a fall yesterday while at her assisted living facility. She lives with her . She has a history of dementia and her daughter provides most of the history. She states that she had pain in her right shoulder, afterwards was unable to use it. No numbness or tingling into the fingers that she has reported. She denies any pain elsewhere. She normally ambulates without use of assistive device. PAST MEDICAL HISTORY: Hypertension, dementia, and GERD. PAST SURGICAL HISTORY: Abdominal surgery. SOCIAL HISTORY: Lives with in assisted living facility. Family nearby. No drugs, tobacco, or alcohol use. REVIEW OF SYSTEMS: Unable to obtain secondary to the patient's mental status. PHYSICAL EXAMINATION: GENERAL: No acute distress, not oriented to place or time. Minimally following commands at this time. Appears comfortable. EXTREMITIES: Focused evaluation of left upper extremity demonstrates skin intact. Full painless passive range of motion. She is able to extend her thumb, but does not follow commands for a major neurovascular exam. Fingers are warm and well perfused with palpable radial pulse. Focused evaluation of the right upper extremity demonstrates ecchymosis and swelling to the right shoulder. There is tenderness to palpation diffusely about the shoulder. No tenderness about the elbow or the wrist. She is able to perform a thumb extension and can make an okay sign. She does not cooperate with the remainder of the examination. Fingers warm, well perfused with palpable radial pulse. Sensation intact to light touch in all fingers. IMAGING: X-rays of the right shoulder demonstrate a comminuted proximal humerus fracture along with extension into the shaft with a comminuted humeral shaft fracture. ASSESSMENT: Right comminuted proximal humeral neck and shaft fracture. PLAN: I had a long discussion with the patient and daughter today. Discussed treatment options with her to include nonoperative management in a sling versus operative treatment. We discussed the risks and benefits of each, including the risks of anesthesia given her mother's age as well as history of severe dementia. We discussed the length of healing time that would likely be present for both nonoperative and operative treatment. After discussion of risks and benefits of each, the patient's daughter elected to proceed with nonoperative management. We will have her placed in a sling and be nonweightbearing on the right upper extremity. We will see her back in clinic in approximately one week for repeat x-rays and ongoing care. The patient can be discharged home once pain is controlled back to Assisted Living Facility with at all times. MD CLAYTON Peoples/YUDI /[id number]
[2020-07-26] VITALS (7 sets, daily range): BP systolic 138–160; BP diastolic 48–72
--- NOTE | 2020-07-26 00:10 | NUR ---
PATIENT IS SLEEPING QUIETLY AT THIS TIME. RESP EVEN AND UNLABORED WITH O2 AT 3L. NO SIGN OF DISTRESS NOTED. BED LOW/LOCKED. BED ALARM IS ON. SITTER AT BED SIDE. CONTINUE TO MONITOR CLOSELY
--- NOTE | 2020-07-26 07:10 | NUR ---
RCD PT AT BED PT IS ALERT AND ORIENTED RESTING ON BED IV PATENT BY SALINE FLUSH BED LOW AND LOCKED FAMILY AT BED SIDE CALL LIGHT IN REACH
[2020-07-26] MEDS: SERTRALINE HCL 50 MG TAB PO SCH (09:00)
[2020-07-26] MEDS: MEMANTINE 10 MG TAB PO SCH ×2 (09:00→17:00)
[2020-07-26] MEDS: RISPERIDONE 0.5 MG TAB PO SCH (09:00)
[2020-07-26] MEDS: CLOPIDOGREL BISULFATE 75 MG TAB PO SCH (09:00)
[2020-07-26] MEDS ORDERED: METOPROLOL TARTRATE 25 MG TAB PO SCH (09:00)
[2020-07-26] MEDS ORDERED: TRAMADOL/APAP 37.5MG-325MG TAB PO PRN (12:00)
--- NOTE | 2020-07-26 12:00 | NUR ---
PT RESTING ON BED FAMILY AT BED SIDE
--- NOTE | 2020-07-26 13:56 | NUR ---
DR Lala CHENG HERE AND SPOKE WITH PT'S DTR, LIZETTE [phone], AND PT AT BEDSIDE REGARDING DC PLANS HE DOES NOT RECOMMEND PT TO GO BACK TO [facility] AT THIS TIME DR CHENG IS RECOMMENDING SNF LOC ORTHO, PT AND DTR ALL AGREE THAT FX SHOULD BE TREATED MEDICALLY SINCE IT IS NON-DISPLACED SLING APPLIED TO RIGHT ARM P.T. RECOMMENDATION FOR DC IS SNF GAVE PT'S DTR LIST OF INPT SNF FACILITIES TO DTR LIZETTE [facility] FOR HER TO GIVE CHOICE PT'S DTR DECIDED SHE WANTS TO TAKE PT BACK TO ASSISTED LIVING; NOT A SNF WANT HOME HEALTH FOR SNE AND P.T. FOR TRANSFERS ONLY UNTIL PT IS ABLE TO PUT WEIGHT ON RIGHT ARM; AT THAT TIME SHE WILL ALLOW P.T. TO WORK WITH AMBULATION SHE PLANS ON KEEPING PT IN A WHEELCHAIR AND TRANSFERING HER TO BED/RECLINER LIZETTE STATES SHE WILL SPEAK TO ORTHO ABOUT HER PLAN LATER THIS EVENING CM SPOKE WITH DR Lala CHENG AND NOTIFIED HIM OF DTR'S REFUSAL FOR SNF AND WISH TO RETURN TO [facility] HE IS AGREEABLE IF THIS IS WHAT THE FAMILY WISHES ORDERS REC'D FOR HOME HEALTH
--- NOTE | 2020-07-26 14:36 | NUR ---
PT'S DTR REQUESTING REPEAT COVID TEST FOR [facility] TO ACCEPT PT BACK ORDER REC'D FOR COVID TEST HOUSE SUP NOTIFIED
--- NOTE | 2020-07-26 15:12 | NUR ---
SPOKE WITH DAUGHTER ABOUT HOME HEALTH, SHE CHOSE [facility] SIGNED CHOICE AND FAXED CLINICALS TO [facility]
[2020-07-26] MEDS ORDERED: MAGNESIUM HYDROXIDE 30 ML UDC PO ONE (16:00)
--- NOTE | 2020-07-26 16:00 | NUR ---
PT RESTING ON BED FAMILY AT BED SIDE
[2020-07-26] MEDS: POLYETHYLENE GLYCOL 3350 17 GM PACK PO SCH (17:00)
[2020-07-26] MEDS: METOPROLOL TARTRATE 25 MG TAB PO SCH (17:00)
[2020-07-26] MEDS: CEFTRIAXONE SOD 1 GM/NS 50 ML 50 ML IV SCH (17:19)
--- NOTE | 2020-07-26 18:47 | NUR ---
PT RESTING ON BED BED SIDE REPORT GIVEN TO ONCOMING NURSE
--- NOTE | 2020-07-26 19:45 | NUR ---
BEDSIDE SHIFT REPORT RECEIVED FROM DAY RN. PT IS ALERT AND ORIENTED X2. RESPIRATIONS ARE EVEN AND UNLABORED.ARM IMMOBILIZER ON HER UPPER RT ARM.TELE ON. O2 AT 2 L PER N/C. SISTER TO STAY OVER NIGHT.PT PULLING AT LEADS AND IV INTERMITENTLYT. SISTER OF PT TO STAY THE NIGHT.CALL LIGHT WITHIN REACH. BED IN LOW POSITION.
[2020-07-26] MEDS: ALPRAZOLAM 0.5 MG TAB PO SCH (21:32)
[2020-07-26] MEDS: ATORVASTATIN 10 MG TAB PO SCH (21:32)
[2020-07-27] VITALS (7 sets, daily range): BP systolic 96–169; BP diastolic 53–82
[2020-07-27] MEDS: ZOLPIDEM TARTRATE 5 MG TAB PO PRN (00:53)
--- NOTE | 2020-07-27 07:00 | NUR ---
BEDSIDE SHIFT REPORT FROM YEMI LITTLEJOHN. PT DENIES NEEDS AT THIS TIME.
[2020-07-27] MEDS: MEMANTINE 10 MG TAB PO SCH ×2 (08:56→17:09)
[2020-07-27] MEDS: SERTRALINE HCL 50 MG TAB PO SCH (08:56)
[2020-07-27] MEDS: RISPERIDONE 0.5 MG TAB PO SCH (08:56)
[2020-07-27] MEDS: CLOPIDOGREL BISULFATE 75 MG TAB PO SCH (08:56)
[2020-07-27] MEDS: POLYETHYLENE GLYCOL 3350 17 GM PACK PO SCH (08:56)
[2020-07-27] MEDS: METOPROLOL TARTRATE 25 MG TAB PO SCH ×2 (08:57→17:09)
[2020-07-27] MEDS: CEFTRIAXONE SOD 1 GM/NS 50 ML 50 ML IV SCH (17:09)
--- NOTE | 2020-07-27 19:35 | NUR ---
BEDSIDE SHIFT REPORT RECEIVED FROM DAY SHIFT RN. PT IS ALERT AND ORIENTED X2. HX ALTZHEIMERS NOTED. FAMILY AT BEDSIDE. O2 OFF O2 SAT WNL. RESPIRATIONS EVEN AND UNLABORED. TELE ON. IMMOBILIZER ON- HX FX RT ARM. PT DENIES PAIN. PURWICK IN USE. URINE CLEAR [place] IN COLOR. 20 G SL IN LEFT FOREARM. SITE HEALTHY- WRAPPED IN KERLIX - PT PICK AT O2 TBING AND IV AT TIMES.CALL LIGHT WITHIN REACH,BED ALARM ON. BED IN LOW POSITION.
[2020-07-27] MEDS: ATORVASTATIN 10 MG TAB PO SCH (21:46)
[2020-07-27] MEDS: ALPRAZOLAM 0.5 MG TAB PO SCH (21:46)
[2020-07-28] VITALS: BP 142/58
[2020-07-28 04:00] VITALS: BP 145/56
[2020-07-28 08:00] VITALS: BP 128/51
--- NOTE | 2020-07-28 09:29 | NUR ---
GAVE DAUGHTER COPY OF COVID RESULTS, ASKED HER IF SHE WANTED US TO SET UP TRANSPORT, SHE STATES SHE WANTS TO TRANSPORT HERSELF, JUST WOULD LIKE SOME ONE OT ASSIST HER GET INTO THE CAR. SHE WILL BE DISCHARGING TODAY.
--- NOTE | 2020-07-28 09:47 | NUR ---
EDUCATED ABOUT IMM, SIGNED, FILED IN CHART, WITH COPY LEFT WITH FAMILY AT BEDSIDE.
[2020-07-28] MEDS: CLOPIDOGREL BISULFATE 75 MG TAB PO SCH (10:01)
[2020-07-28] MEDS: METOPROLOL TARTRATE 25 MG TAB PO SCH (10:02)
[2020-07-28] MEDS: MEMANTINE 10 MG TAB PO SCH (10:03)
[2020-07-28] MEDS: SERTRALINE HCL 50 MG TAB PO SCH (10:07)
[2020-07-28] MEDS: RISPERIDONE 0.5 MG TAB PO SCH (10:07)
[2020-07-28] MEDS: POLYETHYLENE GLYCOL 3350 17 GM PACK PO SCH (10:08)
[2020-07-28 10:16] VITALS: BP 128/51
--- NOTE | 2020-07-28 11:46 | NUR ---
SPOKE TO DR. Norma CHENG'S ANSWERING SERVICE TO REQUEST OKAY TO DISCHARGE PATIENT.
[2020-07-28 12:00] VITALS: BP 130/47
[2020-07-28] MEDS ORDERED: ULTRAM50 MG PO (13:28)
[2020-07-28] MEDS ORDERED: ACETAMINOPHEN325 M1 PO (13:29)
[2020-07-28] MEDS ORDERED: ONDANSETRON HCL 4 MG ORAL DISINTEGRATING TAB PO PRN (13:30)
--- NOTE | 2020-07-28 14:45 | NUR ---
Called [facility] and verified that they are accepting pt. Informed them that pt is discharging today. They are aware and have already spoken to pt's daughter.
== END 2020-07-28 15:15 | disposition home health service (06) | DRG 543 ==
LOC: ER 16:00 → ERHOLD 16:52 → MED/SURG 17:50
DX: M84.421A Pathological fracture, right humerus, initial encounter for fracture (principal); G93.40 Encephalopathy, unspecified; N39.0 Urinary tract infection, site not specified; I10 Essential (primary) hypertension; I25.10 Atherosclerotic heart disease of native coronary artery without angina pectoris; W19.XXXA Unspecified fall, initial encounter; Z11.59 Encounter for screening for other viral diseases; I51.7 Cardiomegaly; F32.9 Major depressive disorder, single episode, unspecified
CPT/HCPCS: 36415; 80053; 85025; 87086; 97139; 99283; J0696; J2270; J2405; J7050; U0002